=== PATIENT | male | born 1940 | race Caucasian/White ===

== ENCOUNTER 2017-08-26 18:01 | Inpatient (IN) | payer MEDICARE, BC ==
[~2017-08-26] VITALS: Ht 182.9 cm; Wt 97.1 kg
[2017-08-26 18:12] VITALS: BP 127/73
[2017-08-26 18:45] LABS: LYMPH % 8.2 % (10-50)
--- NOTE | 2017-08-26 18:46 | Emergency Room Report ---
History of Present Illness Time Seen by MD Patel Presenting Problem in Triage Pt arrived:Walked Presenting Problem:PT REPORTS WAS IN THE HOSPITAL IN [place] R/T AFIB. PT REPORTS WAS DISCHARGED AND TOLD WASN'T GOING TO "SHOCK HIM" FOR HIS AFIB WERE GOING TO TRY MEDICATIONS. PT STATES HAS BEEN FEELING WEAK AND IS DIZZY UPON STANDING. PT STATES HE HAS NOT FELT ANY BETTER SINCE HE WAS DISCHARGED FROM THE HOSPITAL IN [place]. 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 N Clinical Suspician of Infection? N Mental Status: 1 - Regular (Normal Baseline) Sepsis Risk:Low Sepsis Risk Have you (or family members/close friends) recently traveled outside the [facility]? N If Yes, where/when: Have you had exposure to infectious disease within the past month? N TB? Other? Specify: Comment History obtained from the patient and review of records from prior hospital admission in [facility]. 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 Recently about 10 days ago when in [facility] on the boat he became sick. He had weakness, high fever, shortness of breath, sore throat. He went to the hospital there and was admitted. He is diagnosed with atrial fibrillation. He has a history of paroxysmal atrial fibrillation prior to that, requiring several cardioversions. They did not cardiovert him in the hospital. He was treated with Levaquin and Tamiflu, although he says his flu test was negative and he was not told that he had pneumonia. He was treated empirically based upon his story. He says that he drove himself home on Tuesday 5 days ago and felt okay on that day, but on Tuesday his symptoms relapsed. He has not been out of bed since. He no longer has a severe sore throat, but has continued hoarseness. He feels weak, dizzy, and short of breath. He feels like when he stands up his blood pressure is low and he gets very dizzy. He has not been eating well. He has not had a bowel movement in 3 days. He has also been on prednisone. He called his primary care physician, Dr. Polk, on arrival home as instructed, but is not able to get in for 2-1/2 weeks. ALLERGIES Coded Allergies: No Known Allergies (08/26/17) Home Medications Reported Medications TAMSULOSIN HCL (Flomax 0.4MG) 0.4 MG PO QHS VIT B COMP/C/FA/IRON/VIT E (Vitamin B Complex Tablet) 1 TAB PO DAILY Prednisone (Prednisone 20MG) 20 MG PO BID Bupropion Hcl (Bupropion XL) 150 MG PO DAILY Digoxin (Digitek) 125 MCG PO DAILY Gabapentin (Gabapentin 100MG) 100 MG PO BID Gabapentin (Gabapentin 300MG) 300 MG PO QHS Levofloxacin (Levofloxacin 750MG) 750 MG PO DAILY History Medical History General CAD? No Angina: No [place]: No Hypertension? No Hyperlipidemia? No CHF? No DVT? No PE? No COPD? No Asthma? No Anemia? No GERD? No Gastric ulcers? No GI Bleed? No Hernia? No Thyroid Problems? No Hypothyroidism? No CVA? No Seizures? No Diabetes? No Renal Insuffiency? No End Stage Renal Disease? No UTI? No Stones? No GB Disease: No Nephritic Syndrome? No Asplenia? No Hepatitis? No Sickle Cell Disease? No Arthritis? No Migraines? No Cataracts? No Glaucoma? No MRSA? No HIV? No TB? No Anxiety? Yes Depression? Yes Cancer? Yes Site: SKIN (REMOVED) More? Yes Additional hx: AFIB Immunization Hx DT/Tetanus 02/21/09 Flu 2YRSorMore Pneumonia 1-4 YRS Surgical Hx Previous Surgery?Y CARTILAGE RT KNEE HEART CATHS-LAST 2001 SKIN CA REMOVED Family History Family Hx Diabetes No CAD No Hypertension No Hyperlipidemia No Cancer No TB No Social History Smoking Hx Smoker: Former Smoker Tobacco: No Packs/day N/A Alcohol Alcohol: No Review of Systems All Other Systems Reviewed and Negative Constitutional malaise, weakness ENT see HPI. Respiratory shortness of breath Cardiovascular denies chest pain Gastrointestinal constipation, denies vomiting Physical Exam Vital Signs Vital Signs Date Time Temp Pulse Resp B/P Pulse O2 O2 Flow FiO2 Ox Delivery Rate 08/26 1910 97 18 116/76 96 08/26 1824 119 90/60 10/13 1822 110 81/64 08/26 1820 97 108/71 08/26 1812 98.0 97 18 127/73 96 General Appearance no apparent distress Eye Exam - bilateral eye normal exam, bilateral eye PERRL, bilateral eye EOMI Ear, Nose, Throat hearing grossly normal, normal ENT inspection Neck normal inspection, non-tender, supple, full range of motion Respiratory Status Yes: trachea midline, chest symmetrical, non tender chest. No: respiratory distress. Lung Sounds bilateral: normal breath sounds, lungs clear. 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 No Results/Orders Laboratory Tests 08/26/171831: Sodium 138, Potassium 4.4, Chloride 103, Carbon Dioxide 32, BUN 31 H, Creatinine 1.5 H, Estimated Creat Clear 55, Estimated GFR (MDRD) 45, Glucose 106, Calcium 8.9, Total Bilirubin 0.7, AST 16, ALT 29, Alkaline Phosphatase 92, Creatine Kinase 24 L, CK-MB (CK-2) Rel Index 2.9, CK and CKMB Interp 0.7, Troponin I < 0.02, Total Protein 7.1, Albumin 3.3 L, Globulin 3.8 H, Albumin/ Globulin Ratio 0.9 L, WBC 12.5 H, RBC 5.63, Hgb 17.9, Hct 54.6 H, MCV 97.0, RDW 14.4, Plt Count 185, MPV 9.3, Gran % 83.6 H, Gran # 10.4 H, Lymphocytes % 8.2 L, Monocytes % 7.8, Eosinophils % 0.3, Basophils % 0.2, Lymphocytes # 1.0, Monocytes # 1.0, Eosinophils # 0.0, Basophils # 0.0, PUBS MCHC 32.5, MCH 31.5 H , Digoxin 0.76 L Current Medication Orders Sig/Nathan Start time Last Medication Dose Route Stop Time Status Admin Sodium Chloride 10 ML PRN PRN 08/26 1845 AC IV 08/27 183 Sodium Chloride 1,000 ML .Q4H 08/26 1845 AC 08/26 IV 08/26 Sodium Chloride 10 ML PRN PRN 08/26 1845 AC IV 08/27 184 Sodium Chloride 1,000 ML .STK-MED ONE 08/26 184 DC IV Orders Procedure Date/time Status Decision to admit 08/26 1942 Active DIGOXIN 08/26 1921 Complete ELECTROCARDIOGRAM REQUEST 08/26 1833 Active CHEST-PORTABLE 08/26 1833 Active IV SALINE LOCK 08/26 1833 Active 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 08/26 1833 Active ORTHOSTATIC B/P 08/26 1833 Active CBC WITH AUTO DIFF 08/26 1833 Complete CARDIAC ENZYMES 08/26 1833 Complete CHEM 12 PROFILE 08/26 1833 Complete CM/EKG CM/EKG Comments EKG interpreted by Pierre Casillas MD: Rhythm: Atrial fibrillation with rapid ventricular response Rate: 110 [place]: LEFT Ectopy: none Conduction: normal ST Segment Changes: Nonspecific T Wave Changes: Nonspecific Q Waves: none No evidence of acute ischemia or injury Left ventricular hypertrophy Poor R-wave progression No prior EKGs available for comparison XRAY/CT/US XRAY/CT/US XRAY chest Comment X-ray interpreted by Pierre Casillas M.D.: minimal airspace disease and bases, atelectasis versus infiltrate. Progress - 7:39 PM: I have discussed the case with Dr. Luna for Dr. Polk who agrees to admit the patient to the hospital. We discussed the patient's clinical information, including history, exam, laboratory and radiology results and ED course. Per hospital procedure, I will write temporary bridge inpatient orders on the patient. Specific orders requested by the admitting physician: IV hydration, change from Levaquin to Rocephin due to potential interaction with amiodarone. Departure Departure Disposition Still a Patient Clinical Impression Primary Impression: Orthostatic hypotension Condition STABLE ED Critical Care Critical Care No at 2018
--- NOTE | 2017-08-26 18:46 | Emergency Room Report ---
History of Present Illness Time Seen by MD Patel Presenting Problem in Triage Pt arrived:Walked Presenting Problem:PT REPORTS WAS IN THE HOSPITAL IN [place] R/T AFIB. PT REPORTS WAS DISCHARGED AND TOLD WASN'T GOING TO "SHOCK HIM" FOR HIS AFIB WERE GOING TO TRY MEDICATIONS. PT STATES HAS BEEN FEELING WEAK AND IS DIZZY UPON STANDING. PT STATES HE HAS NOT FELT ANY BETTER SINCE HE WAS DISCHARGED FROM THE HOSPITAL IN [place]. 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 N Clinical Suspician of Infection? N Mental Status: 1 - Regular (Normal Baseline) Sepsis Risk:Low Sepsis Risk Have you (or family members/close friends) recently traveled outside the [facility]? N If Yes, where/when: Have you had exposure to infectious disease within the past month? N TB? Other? Specify: Comment History obtained from the patient and review of records from prior hospital admission in [facility]. 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 Recently about 10 days ago when in [facility] on the boat he became sick. He had weakness, high fever, shortness of breath, sore throat. He went to the hospital there and was admitted. He is diagnosed with atrial fibrillation. He has a history of paroxysmal atrial fibrillation prior to that, requiring several cardioversions. They did not cardiovert him in the hospital. He was treated with Levaquin and Tamiflu, although he says his flu test was negative and he was not told that he had pneumonia. He was treated empirically based upon his story. He says that he drove himself home on Tuesday 5 days ago and felt okay on that day, but on Tuesday his symptoms relapsed. He has not been out of bed since. He no longer has a severe sore throat, but has continued hoarseness. He feels weak, dizzy, and short of breath. He feels like when he stands up his blood pressure is low and he gets very dizzy. He has not been eating well. He has not had a bowel movement in 3 days. He has also been on prednisone. He called his primary care physician, Dr. Polk, on arrival home as instructed, but is not able to get in for 2-1/2 weeks. ALLERGIES Coded Allergies: No Known Allergies (08/26/17) Home Medications Reported Medications TAMSULOSIN HCL (Flomax 0.4MG) 0.4 MG PO QHS VIT B COMP/C/FA/IRON/VIT E (Vitamin B Complex Tablet) 1 TAB PO DAILY Prednisone (Prednisone 20MG) 20 MG PO BID Bupropion Hcl (Bupropion XL) 150 MG PO DAILY Digoxin (Digitek) 125 MCG PO DAILY Gabapentin (Gabapentin 100MG) 100 MG PO BID Gabapentin (Gabapentin 300MG) 300 MG PO QHS Levofloxacin (Levofloxacin 750MG) 750 MG PO DAILY History Medical History General CAD? No Angina: No [place]: No Hypertension? No Hyperlipidemia? No CHF? No DVT? No PE? No COPD? No Asthma? No Anemia? No GERD? No Gastric ulcers? No GI Bleed? No Hernia? No Thyroid Problems? No Hypothyroidism? No CVA? No Seizures? No Diabetes? No Renal Insuffiency? No End Stage Renal Disease? No UTI? No Stones? No GB Disease: No Nephritic Syndrome? No Asplenia? No Hepatitis? No Sickle Cell Disease? No Arthritis? No Migraines? No Cataracts? No Glaucoma? No MRSA? No HIV? No TB? No Anxiety? Yes Depression? Yes Cancer? Yes Site: SKIN (REMOVED) More? Yes Additional hx: AFIB Immunization Hx DT/Tetanus 02/21/09 Flu 2YRSorMore Pneumonia 1-4 YRS Surgical Hx Previous Surgery?Y CARTILAGE RT KNEE HEART CATHS-LAST 2001 SKIN CA REMOVED Family History Family Hx Diabetes No CAD No Hypertension No Hyperlipidemia No Cancer No TB No Social History Smoking Hx Smoker: Former Smoker Tobacco: No Packs/day N/A Alcohol Alcohol: No Review of Systems All Other Systems Reviewed and Negative Constitutional malaise, weakness ENT see HPI. Respiratory shortness of breath Cardiovascular denies chest pain Gastrointestinal constipation, denies vomiting Physical Exam Vital Signs Vital Signs Date Time Temp Pulse Resp B/P Pulse O2 O2 Flow FiO2 Ox Delivery Rate 08/26 1910 97 18 116/76 96 08/26 1824 119 90/60 10/13 1822 110 81/64 08/26 1820 97 108/71 08/26 1812 98.0 97 18 127/73 96 General Appearance no apparent distress Eye Exam - bilateral eye normal exam, bilateral eye PERRL, bilateral eye EOMI Ear, Nose, Throat hearing grossly normal, normal ENT inspection Neck normal inspection, non-tender, supple, full range of motion Respiratory Status Yes: trachea midline, chest symmetrical, non tender chest. No: respiratory distress. Lung Sounds bilateral: normal breath sounds, lungs clear. 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 No Results/Orders Laboratory Tests 08/26/171831: Sodium 138, Potassium 4.4, Chloride 103, Carbon Dioxide 32, BUN 31 H, Creatinine 1.5 H, Estimated Creat Clear 55, Estimated GFR (MDRD) 45, Glucose 106, Calcium 8.9, Total Bilirubin 0.7, AST 16, ALT 29, Alkaline Phosphatase 92, Creatine Kinase 24 L, CK-MB (CK-2) Rel Index 2.9, CK and CKMB Interp 0.7, Troponin I < 0.02, Total Protein 7.1, Albumin 3.3 L, Globulin 3.8 H, Albumin/ Globulin Ratio 0.9 L, WBC 12.5 H, RBC 5.63, Hgb 17.9, Hct 54.6 H, MCV 97.0, RDW 14.4, Plt Count 185, MPV 9.3, Gran % 83.6 H, Gran # 10.4 H, Lymphocytes % 8.2 L, Monocytes % 7.8, Eosinophils % 0.3, Basophils % 0.2, Lymphocytes # 1.0, Monocytes # 1.0, Eosinophils # 0.0, Basophils # 0.0, PUBS MCHC 32.5, MCH 31.5 H , Digoxin 0.76 L Current Medication Orders Sig/Nathan Start time Last Medication Dose Route Stop Time Status Admin Sodium Chloride 10 ML PRN PRN 08/26 1845 AC IV 08/27 183 Sodium Chloride 1,000 ML .Q4H 08/26 1845 AC 08/26 IV 08/26 Sodium Chloride 10 ML PRN PRN 08/26 1845 AC IV 08/27 184 Sodium Chloride 1,000 ML .STK-MED ONE 08/26 184 DC IV Orders Procedure Date/time Status Decision to admit 08/26 1942 Active DIGOXIN 08/26 1921 Complete ELECTROCARDIOGRAM REQUEST 08/26 1833 Active CHEST-PORTABLE 08/26 1833 Active IV SALINE LOCK 08/26 1833 Active 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 08/26 1833 Active ORTHOSTATIC B/P 08/26 1833 Active CBC WITH AUTO DIFF 08/26 1833 Complete CARDIAC ENZYMES 08/26 1833 Complete CHEM 12 PROFILE 08/26 1833 Complete CM/EKG CM/EKG Comments EKG interpreted by Pierre Casillas MD: Rhythm: Atrial fibrillation with rapid ventricular response Rate: 110 [place]: LEFT Ectopy: none Conduction: normal ST Segment Changes: Nonspecific T Wave Changes: Nonspecific Q Waves: none No evidence of acute ischemia or injury Left ventricular hypertrophy Poor R-wave progression No prior EKGs available for comparison XRAY/CT/US XRAY/CT/US XRAY chest Comment X-ray interpreted by Pierre Casillas M.D.: minimal airspace disease and bases, atelectasis versus infiltrate. Progress - 7:39 PM: I have discussed the case with Dr. Luna for Dr. Polk who agrees to admit the patient to the hospital. We discussed the patient's clinical information, including history, exam, laboratory and radiology results and ED course. Per hospital procedure, I will write temporary bridge inpatient orders on the patient. Specific orders requested by the admitting physician: IV hydration, change from Levaquin to Rocephin due to potential interaction with amiodarone. Departure Departure Disposition Still a Patient Clinical Impression Primary Impression: Orthostatic hypotension Condition STABLE ED Critical Care Critical Care No at 2018
[2017-08-26 18:53] LABS: HEMOGLOBIN 17.9 g/dL (14.1-18.0)
[2017-08-26 19:02] LABS: BUN 31 mg/dL (7-18); GFR (ESTIMATED) 45 ML/MIN (>60)
[2017-08-26] MEDS ORDERED: FLOMAX 0.4MG C0.4 MG PO (20:14)
[2017-08-26] MEDS ORDERED: VITAMIN B COMPL PO (20:15)
[2017-08-26] MEDS ORDERED: BUDEPRION XL150 MG PO (20:16)
[2017-08-26] MEDS ORDERED: PREDNISONE 20MG20 MG PO (20:16)
[2017-08-26] MEDS ORDERED: GABAPENTIN100 M1 PO (20:17)
[2017-08-26] MEDS ORDERED: DIGITEK125 MCG PO (20:17)
[2017-08-26] MEDS ORDERED: GABAPENTIN300 MG PO (20:18)
[2017-08-26] MEDS ORDERED: AMIODARONE 200200 MG PO (20:18)
[2017-08-26] MEDS ORDERED: LEVOFLOXACIN 7750 M1 PO (20:18)
[2017-08-26] MEDS ORDERED: ELIQUIS5 MG PO (20:19)
[2017-08-26] MEDS ORDERED: CARDIZEM GENERI30 MG PO (20:20)
[2017-08-26] MEDS ORDERED: ALPRAZOLAM0.5 MG PO (20:21)
[2017-08-26] MEDS ORDERED: LASIX20 MG PO (20:21)
[2017-08-26] MEDS ORDERED: POTASSIUM CHLO10 ME3 PO (20:22)
[2017-08-26] MEDS ORDERED: ALBUTEROL-1 PUFF/14. IN (20:22)
[2017-08-26 21:34] VITALS: BP 127/69
[2017-08-26 21:40] VITALS: BP 119/74
[2017-08-27] VITALS (12 sets, daily range): BP systolic 89–140; BP diastolic 52–107
--- NOTE | 2017-08-27 07:20 | RADIOLOGY REPORT PS360 ---
CHEST-PORTABLE HISTORY: WEAKNESS, DIZZINESS ORDERING PHYSICIAN: Pierre Casillas MD PATIENT AGE: 77 years COMPARISON: 05/23/2017 FINDINGS: The cardiomediastinal silhouette and pulmonary vascularity are within normal limits. There is chronic coarsening of the bronchovascular markings consistent with chronic peribronchial inflammatory change. Increased markings are present in the right lung base consistent with atelectasis or infiltrate. Patchy density also present in the left lung base laterally. Probable nipple artifact left lower lobe. IMPRESSION: Chronic peribronchial inflammatory changes with atelectasis or infiltrate in the lung bases
--- NOTE | 2017-08-27 10:39 | HISTORY AND PHYSICAL REPORT ---
History and Physical ([facility]) Date of admission: 08/26/17 Chief complaint: Weakness, malaise, congestion History: History of Present Illness: This 77-year-old white male has paroxysmal atrial fibrillation. His admission however, relates to her respiratory illness which he contracted [place] was [place]. 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 He became ill and was hospitalized in [facility]. There was some question of influenza but he never tested positive. He was treated with Levaquin at some point during his illness. This is of concern because the patient normally takes amiodarone (potential interaction) for his paroxysmal atrial fibrillation. He was hospitalized , Tuesday, Tuesday, Tuesday and was discharged last Tuesday. (Today is Tuesday). He drove home from his trip in a rented car but has not felt well since his hospitalization. He presented in the emergency room for evaluation. He is continued with congestion. He has had no gastrointestinal disturbance. He was told that there was an outbreak of influenza on the river boat. Past Medical History: Medical History: CAD? No Angina: No [place]: No Hypertension? Yes Hyperlipidemia? No CHF? No DVT? No PE? No COPD? No Asthma? No Anemia? No GERD? No Gastric ulcers? No GI Bleed? No Hernia? No Thyroid Problems? No Hypothyroidism? No CVA? No Seizures? No Diabetes? No Renal Insuffiency? No UTI? No Stones? No BPH? Yes GB Disease: No Nephritic Syndrome? No Asplenia? No Hepatitis? No Sickle Cell Disease? No Arthritis? No Migraines? No Cataracts? No Glaucoma? No MRSA? No HIV? No TB? No Anxiety? Yes Depression? Yes (venlafaxine and bupropion) Cancer? Yes Site: SKIN (REMOVED) More? Yes Additional hx: Mitral valve prolapse AFIB (Rx Amiodarone) Surgical history: Previous Surgery?Y 1. CARTILAGE RT KNEE with arthroscopy 2. HEART CATHS-LAST 2001 3. SKIN CA REMOVED Medications: Reported Medications TAMSULOSIN HCL (Flomax 0.4MG) 0.4 MG PO QHS VIT B COMP/C/FA/IRON/VIT E (Vitamin B Complex Tablet) 1 TAB PO DAILY Prednisone (Prednisone 20MG) 20 MG PO BID Bupropion Hcl (Bupropion XL) 150 MG PO DAILY Digoxin (Digitek) 125 MCG PO DAILY Gabapentin (Gabapentin 100MG) 100 MG PO DAILY Gabapentin (Gabapentin 300MG) 300 MG PO QHS Levofloxacin (Levofloxacin 750MG) 750 MG PO DAILY Amiodarone Hcl (Amiodarone 200MG) 200 MG PO DAILY Apixaban (Eliquis) 5 MG PO BID Diltiazem Hcl (Cardizem Generic 30MG Tab) 30 MG PO TID ALPRAZOLAM (Alprazolam 0.5MG) 0.5 MG PO QHS POTASSIUM CHL (Potassium Chloride) 10 MEQ PO DAILY ALBUTEROL-IPRATROPIUM (Combivent Inhaler) 1 PUFFS IN QID Allergies: Coded Allergies: No Known Allergies (08/26/17) Family History: Family history: Postive for: CAD, cancer. Additional family history: 2 brothers and a sister have atrial fibrillation and have been treated. His mother of complications. She had a history of asthma. The patient has 5 brothers and 2 sisters one daughter and 3 sons. Social History: Smoking Hx Tobacco: No Smoker: Former Smoker Type: Cigarettes Packs/day: < 1 Pack Are you exposed to second hand No Alcohol: Alcohol: Yes How much do you drink 1-2 Drinks Per Day For how long Longer Than 5 Years When was your last drink Greater Than 72 Hours Ago Hx of Drug Use: Drug Use? 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 No Constitutional Positive for: fatigue, malaise, weak. No: chills, recent weight loss. ENT No: ear ache, nose bleed, ear drainage, hearing loss, mouth pain, nasal congestion, ear ringing, sinus problems, sore throat, throat swelling, tongue pain, tongue swelling, toothache, voice change. Cardiovascular Positive for: PEREZ, palpitations. Respiratory Positive for: dyspnea on exertion, shortness of air, productive cough (sputum). GI No: GERD, abdominal pain, anorexia, constipation, diarrhea, dysphagia, hematemeis, hematochezia, hernia, melena, nausea, rectal pain, vomitting. (male) Positive for: urgency. No: flank pain. Skin No: abrasions, bruising, contusions, diaphoresis, ecchymosis, itching, laceration, rash, swelling. Neurological Positive for: weakness. No: change in LOC, bladder dysfunction, bowel dysfunction, confusion, dizziness, gait problem, headache, light headed, numbness, seizure, slurred speech, unable to speak, spinning sensation, syncope, vision change. Immune/allergy No: allergy. Eyes No: blurry vision, diploplia, discharge, itching, vision loss, eye pain, photophobia, redness, swelling. Musculoskeletal No: arterial, extremity pain, extremity swelling, joint pain, joint swelling, lumbar pain, myalgias, neck pain, thoracic pain. Heme No: adenopathy, bleeding, bruising, petechia. Psychiatric Positive for: depression, stress. No: agitation, anxious, auditory hallucinations, confused, delusional, homicidal ideation, hostile, insomnia, change in mental status, suicidal ideation, visual hallucination. Additional information: depression related to loss of his second . He also lost a son 9 y,o. Physical Exam: Vital signs: 1ST Vital Signs Result Date Time Pulse Ox 96 08/26 1812 B/P 127/73 08/26 1812 Temp 98.0 08/26 1812 Pulse 97 08/26 181 Resp 18 08/26 1812 O2 Delivery ROOM AIR 08/26 2134 O2 Flow Rate 2 08/26 2338 Exam: General appearance: alert, no acute distress Eyes: anicteric, conjunctiva clear, pupils reactive to light ENT: mucous membranes moist Neck: normal inspection, no JVD Cardiovascular: irregularly irregular Respiratory: good air movement, basilar rales (some) ABD: soft, no tenderness, no guarding, no organomegaly Genitourinary: normal voiding & quantity (some dysuria) Extremities: normal capillary refill, no peripheral edema Musculoskeletal: equal muscle strength Skin: dry, intact, normal color Neuro: alert, oriented, speech clear Lab data: Labs: Laboratory Tests 08/26/17 1832: Sodium 138, Potassium 4.4, Chloride 103, Carbon Dioxide 32, BUN 31 H, Creatinine 1.5 H, Estimated Creat Clear 55, Estimated GFR (MDRD) 45, Glucose 106, Calcium 8.9, Total Bilirubin 0.7, AST 16, ALT 29, Alkaline Phosphatase 92, Creatine Kinase 24 L, CK-MB (CK-2) Rel Index 2.9, CK and CKMB Interp 0.7, Troponin I < 0.02, Total Protein 7.1, Albumin 3.3 L, Globulin 3.8 H, Albumin/ Globulin Ratio 0.9 L, WBC 12.5 H, RBC 5.63, Hgb 17.9, Hct 54.6 H, MCV 97.0, RDW 14.4, Plt Count 185, MPV 9.3, Gran % 83.6 H, Gran # 10.4 H, Lymphocytes % 8.2 L, Monocytes % 7.8, Eosinophils % 0.3, Basophils % 0.2, Lymphocytes # 1.0, Monocytes # 1.0, Eosinophils # 0.0, Basophils # 0.0, PUBS MCHC 32.5, MCH 31.5 H , Digoxin 0.76 L Diagnosis(es): 1. Orthostatic hypotension 2. Dehydration 3. Acute respiratory infection 4. Chronic atrial fibrillation 5. Depression 6. Reactive depression Plan: At this point the patient may benefit most from rehydration and from [place] dilators per nebulizer. He seems to be responding well to treatment. Her Dodge will see the patient in my absence. at [id number]
--- NOTE | 2017-08-27 13:25 | PHARMACY CLINIC NOTE ---
Patient Demographics Patient Demographics Admission date: 08/26/17 Date: 08/27/17 Time: 1324 Allergies Coded Allergies: No Known Allergies (08/26/17) HEIGHT- FT: 6 IN: 0.00 K.098 VTE General Information Labs: Laboratory Tests 08/26 1832 Hematology Hgb (14.1 - 18.0 g/dL) 17.9 Hct (42.0 - 52.0 %) 54.6 H Plt Count (142 - 424 K/mm3) 185 Disclaimer The following section includes nursing documentation that has been pulled in for pharmacy review. Patient's VTE score: 4 Patient's VTE Risk: LOW RISK Clinical trial participant? No VTE prophylaxis NQF [id number] VTE prophylaxis ordered? Yes Type of prophylaxis/treatment: Heparin (ELIQUIS BID) at 1323
[2017-08-27] MEDS ORDERED: VENLAFAXINE HYD75 M1 PO (14:55)
--- OUTSIDE RECORDS SUMMARY | 2017-08-27 21:58 | External Medical Summary Rpt | CCD ---
Author Author , GISSELL BORRERO Address Unknown Phone [email or web address] Purpose Continuity of Care Document - through 2016
--- OUTSIDE RECORDS SUMMARY | 2017-08-27 21:58 | External Medical Summary Rpt | CCD ---
Author Author , GISSELL BORRERO Address Unknown Phone [email or web address] Purpose Continuity of Care Document - through 2016
--- OUTSIDE RECORDS SUMMARY | 2017-08-27 21:59 | External Medical Summary Rpt ---
Author Author GISSELL Epstein, [employer] Organization [employer] Address Unknown Phone Unavailable
--- OUTSIDE RECORDS SUMMARY | 2017-08-27 21:59 | External Medical Summary Rpt | CCD ---
Demographics Preferred Language Haitian Marital Status Unknown Tenriism Affiliation Unknown Race Unknown Ethnic Group Unknown Author Author , GISSELL BORRERO Address Unknown Phone Immunization No patient found.
--- OUTSIDE RECORDS SUMMARY | 2017-08-27 21:59 | External Medical Summary Rpt | CCD ---
Demographics Preferred Language Guatemalan Marital Status Unknown Islam Affiliation Unknown Race Unknown Ethnic Group Unknown Author Author , GISSELL BORRERO Address Unknown Phone Immunization No patient found.
--- OUTSIDE RECORDS SUMMARY | 2017-08-27 21:59 | External Medical Summary Rpt | CCD ---
Author Author [employer] Organization [employer] Address Unknown Phone Unavailable Purpose Continuity of Care Document - through 2016
--- OUTSIDE RECORDS SUMMARY | 2017-08-27 22:05 | External Medical Summary Rpt ---
Author Author GISSELL Epstein, [employer]LL [employer] Organization [employer] Address Unknown Phone Unavailable Results Digoxin [Mass/volume] in Serum or Plasma Observa Value Referen Units Interpr Notes Date tion ce etation Range Digoxin 1.15 - ng/mL Low No Aug 26 [Mass/vol 2.56 informati 2017 6:32 ume] in on in PM Serum or source Plasma data CBC W Auto Differential panel in Blood Observa Value Referen Units Interpr Notes Date tion ce etation Range Basophils 0 - 0.2 K/MM3 Normal No Aug 26 informati 2016 6:32 [#/volume on in PM ] in source Blood by data Automated count Basophils 0.1 - 2.0 % Normal No Aug 26 informati 2016 6:32 leukocyte on in PM s in source Blood by data Automated count Eosinophi 0.0 - 0.4 K/mm3 Normal No Aug 26 ls informati 2016 6:32 [#/volume on in PM ] in source Blood by data Automated count Eosinophi 0.1 - % Normal No Aug 26 ls/100 12.0 informati 2016 6:32 leukocyte on in PM s in source Blood by data Automated count Granulocy 1.3 - 8.0 K/mm3 High No Aug 26 yashira informati 2016 6:32 [#/volume on in PM ] in source Blood by data Automated count Granulocy 37.0 - % High No Aug 26 yashira/100 80.0 informati 2016 6:32 leukocyte on in PM s in source Blood by data Automated count Hematocri 42.0 - % High No Aug 26 t [Volume 52.0 informati 2016 6:32 on in PM Fraction] source of Blood data Hemoglobi 14.1 - g/dL No No Aug 26 n 18.0 informati informati 2016 6:32 [Mass/vol on in on in PM ume] in source source Blood data data Lymphocyt 0.7 - 4.5 K/mm3 Normal No Aug 26 es informati 2016 6:32 [#/volume on in PM ] in source Unspecifi data ed specimen by Automated count Lymphocyt 10 - 50 % Low No Aug 26 es informati 2016 6:32 [#/volume on in PM ] in source Unspecifi data ed specimen by Automated count Erythrocy 27 - 31.2 pg High No Aug 26 te mean informati 2016 6:32 corpuscul on in PM ar source hemoglobi data n [Entitic mass] Erythrocy 31.8 - g/dl Normal No Aug 26 te mean 35.4 informati 2017 6:32 corpuscul on in PM ar source hemoglobi data n concentra tion [Mass/vol ume] by Automated count Erythrocy 82.2 - fl Normal No Aug 26 te mean 97.8 informati 2016 6:32 corpuscul on in PM ar volume source [Entitic data volume] by Automated count Monocytes 0.1 - 1.0 K/mm3 Normal No Aug 26 informati 2017 6:32 [#/volume on in PM ] in source Blood by data Automated count Monocytes 1.7 - 9.3 % Normal No Aug 26 /100 informati 2017 6:32 leukocyte on in PM s in source Blood by data Automated count Platelet 7.4 - fl Normal No Aug 26 mean 10.4 informati 2017 6:32 volume on in PM [Entitic source volume] data in Blood by Automated count Platelets 142 - 424 K/mm3 Normal No Aug 26 informati 2017 6:32 [#/volume on in PM ] in source Blood data Erythrocy 4.6 - 6.2 M/mm3 Normal No Aug 26 yashira informati 2017 6:32 [#/volume on in PM ] in source Amniotic data fluid Erythrocy 11.5 - % Normal No Aug 26 te 17.5 informati 2016 6:32 distribut on in PM ion width source [Entitic data volume] by Automated count Leukocyte 4.8 - K/MM3 High No Aug 26 s 10.8 informati 2016 6:32 [#/volume on in PM ] in source Blood data
--- OUTSIDE RECORDS SUMMARY | 2017-08-27 22:05 | External Medical Summary Rpt | CCD ---
Demographics Preferred Language American Marital Status Unknown Restorationism Affiliation Unknown Race Unknown Ethnic Group Unknown Author Author , GISSELL BORRERO Address Unknown Phone Immunization No patient found.
--- OUTSIDE RECORDS SUMMARY | 2017-08-27 22:05 | External Medical Summary Rpt ---
Author Author GISSELL Epstein, G[employer]LL [employer] Organization [employer] Address Unknown Phone Unavailable [...]
--- OUTSIDE RECORDS SUMMARY | 2017-08-27 22:05 | External Medical Summary Rpt | CCD ---
Author Author , GISSELL BORRERO Address Unknown Phone [email or web address] Purpose Continuity of Care Document - 08-26-2017 through 2016
--- OUTSIDE RECORDS SUMMARY | 2017-08-27 22:05 | External Medical Summary Rpt | CCD ---
Demographics Preferred Language Bulgarian Marital Status Unknown Taoist Affiliation Unknown Race Unknown Ethnic Group Unknown Author Author , GISSELL BORRERO Address Unknown Phone Immunization No patient found.
--- OUTSIDE RECORDS SUMMARY | 2017-08-27 22:05 | External Medical Summary Rpt | CCD ---
Author Author , GISSELL BORRERO Address Unknown Phone [email or web address] Purpose Continuity of Care Document - 08-26-2017 through 2016
[2017-08-28] VITALS (11 sets, daily range): BP systolic 101–163; BP diastolic 61–80
--- NOTE | 2017-08-28 10:59 | ACUTE CARE PROGRESS NOTE (QUA) ---
Progress Notes Subjective Date 08/28/17 Time 1056 Note Patient states he feels better today, wants to see a director dietetics department about his a. fib. Objective Findings Vital Signs Date Time Temp Pulse Resp B/P Pulse O2 O2 Flow FiO2 Ox Delivery Rate 08/28 0905 98.1 98 20 107/78 91 08/28 0830 98.1 98 20 107/78 91 ROOM AIR 08/28 0642 2 08/28 0642 90 ROOM AIR 08/28 0426 98.0 65 18 106/76 93 ROOM AIR 08/28 0425 98.0 61 18 112/61 93 ROOM AIR 08/28 0424 98.0 98 18 133/80 92 ROOM AIR 08/28 0002 98.4 89 16 101/74 93 ROOM AIR 08/27 2115 98.5 93 18 101/67 94 08/27 2059 98.3 89 16 101/67 90 ROOM AIR 08/27 2058 98.3 64 16 95/62 90 ROOM AIR 08/27 2057 98.3 64 16 106/68 90 ROOM AIR 08/27 2056 2 08/27 1600 89/56 08/27 1600 96/63 08/27 1600 98.5 93 18 110/70 94 ROOM AIR 08/27 1200 97.8 78 18 140/73 93 ROOM AIR I&O Past 24 Hrs-ending at 0700 08/28 0700 Intake Total 2668 Output Total 2800 Balance -132 Last VS-Temp:98.1 B/P:107/78 Pulse:98 Resp:20 SaO2:91 ROOM AIR Last weight lbs:214 oz:1 K.098 Method:Bed Scales Exam General appearance: alert, awake, no acute distress Cardiovascular: irregular rate & rhythm Respiratory: clear to auscultation Assessment/Plan Problem List 1. Orthostatic hypotension Status: Acute 2. Dehydration Status: Acute 3. Acute respiratory infection Status: Acute 4. Chronic atrial fibrillation Status: Chronic 5. Depression This inpt stay is expected to cross 2 MNs from start of care Yes Comments: Patient has improved, continue current treatment, will request cardiology consultation. at 1058
[2017-08-29] VITALS (7 sets, daily range): BP systolic 116–150; BP diastolic 56–95
[2017-08-29 06:46] LABS: HEMOGLOBIN 16.3 g/dL (14.1-18.0); LYMPH # 0.6 K/mm3 (0.7-4.5); LYMPH % 4.3 % (10-50)
[2017-08-29 08:58] LABS: NEUTROPHILS 87 % (42-76)
--- NOTE | 2017-08-29 09:03 | ACUTE CARE PROGRESS NOTE (QUA) ---
Progress Notes Subjective Date 08/29/17 Time 0901 Note Patient feels a little better today. Objective Findings Laboratory Tests 08/29/17 0609: Sodium 141, Potassium 5.1, Chloride 108 H, Carbon Dioxide 29, BUN 24 H, Creatinine 1.1, Estimated Creat Clear 75, Estimated GFR (MDRD) 65, Glucose 119 H, Calcium 8.7, WBC 12.6 H, RBC 5.14, Hgb 16.3, Hct 51.4, MCV 100.1 H, RDW 14.8, Plt Count 185, MPV 9.5, Gran % 90.5 H, Gran # 11.5 H, Total Counted 100, Lymphocytes % 4.3 L, Monocytes % 4.6, Eosinophils % 0.4, Basophils % 0.1, Neutrophils 87 H, Band Neutrophils 1, Lymphocytes (Manual) 4 L, Lymphocytes # 0.6 L, Monocytes (Manual) 8, Monocytes # 0.6, Eosinophils # 0.1, Basophils # 0.0, Platelet Estimate NORMAL, Macrocytosis 1+, PUBS MCHC 31.6 L, MCH 31.7 H Vital Signs Date Time Temp Pulse Resp B/P Pulse O2 O2 Flow FiO2 Ox Delivery Rate 08/29 0823 97.4 53 21 143/79 92 08/29 0800 97.6 107 20 141/95 93 ROOM AIR 08/29 0619 2 08/29 0619 92 ROOM AIR 08/29 0349 97.4 53 21 143/79 93 ROOM AIR 08/28 2357 97.9 79 22 163/71 91 ROOM AIR 08/28 2056 2 08/28 1942 97.6 89 20 111/63 93 08/28 1915 97.6 89 20 11163 93 ROOM AIR 08/28 1627 97.7 98 20 126/74 95 ROOM AIR 08/28 1316 98 ROOM AIR 08/28 1200 98.2 96 20 120/76 96 ROOM AIR 08/28 0905 98.1 98 20 107/78 91 I&O Past 24 Hrs-ending at 0700 08/29 0700 Intake Total 1427 Output Total 1200 Balance 227 Last VS-Temp:97.4 B/P:143/79 Pulse:53 Resp:21 SaO2:92 ROOM AIR Last weight lbs:214 oz:1 K.098 Method:Bed Scales Exam General appearance: alert, awake, no acute distress Cardiovascular: irregularly irregular Respiratory: clear to auscultation ABD: normal bowel sounds, soft, no tenderness Assessment/Plan Problem List 1. Orthostatic hypotension Status: Acute 2. Dehydration Status: Acute 3. Acute respiratory infection Status: Acute 4. Chronic atrial fibrillation Status: Chronic 5. Depression This inpt stay is expected to cross 2 MNs from start of care Yes Comments: Patient improving, cardiology to see patient today. at 0902
--- NOTE | 2017-08-29 11:07 | CONSULT NOTE ---
Standard Demographics Patient Demo Date of Consultation: 08/29/17 Referring Provider: Korey Luna MD Reason for Consultation: A.fib PRIMARY DIAGNOSIS: ORTHOSTATIC HYPOTENSION Problem list Problem list: 1. Chronic paroxysmal atrial fibrillation, first diagnosed about 1999 A. Cardioversion 3 (1999, approximately 2004 and again in 2013) B. Chronic amiodarone and Eliquis therapy. 2. Family history of atrial fibrillation, father with complication of congestive heart failure 3. History of cardiac catheterization approximately 1999, no significant disease noted. 4. Cardiomyopathy by echo, 08/2017, [place] [facility], with EF 30% and dilated ventricles. History of present illness: History of present illness: 77-year-old white male with recent complaint of fatigue and weakness and shortness of breath was admitted to the hospital orthostatic hypotension, dehydration and possible pneumonia. Patient recently hospitalized for several days at [place], [place], for similar symptoms. Patient was released last Tuesday and rented a car to come back to this area (his home). Patient continued to experience some decline in energy and fatigue and decided to come to the hospital for further evaluation. Due to low blood pressure and abnormal chest x-ray patient admitted for further evaluation and treatment. He was noted to be in chronic atrial fibrillation and wished to have cardiology see him for evaluation and recommendations. He states he didn't like to be cardioverted back to sinus rhythm which helps him clinically improve quicker. Initial troponin is normal. Electrocardiogram shows atrial fibrillation with rate of 110 bpm, poor R-wave progression anteriorly and nonspecific ST-T wave changes likely secondary to dig effect. At this time patient is slowly improving without complaint of chest discomfort or palpitations. He states each time he has been in atrial fibrillation he is unaware of it except for the resultant fatigue and weakness. He does relate recently having more alcohol than he normally does as well as a monster energy drink when he was driving home from [place]. Past Medical History: General: Hypertension Yes CVA No Seizures No TB No COPD No Asthma No Diabetes No Angina No ID No Hyperlipidemia No Urinary Yes Cancer Yes Rheumatic H.D. No Ulcers No MRSA No GB Disease No Other ARRHYTHMIA, MITRAL VALVE Additional hx Mitral valve prolapse AFIB (Rx Amiodarone) Past Surgical HX: Previous Surgery?Y CARTILAGE RT KNEE HEART CATHS-LAST 2001 SKIN CA REMOVED Allergies Coded Allergies: No Known Allergies (08/26/17) Home medications: Reported Medications TAMSULOSIN HCL (Flomax 0.4MG) 0.4 MG PO QHS VIT B COMP/C/FA/IRON/VIT E (Vitamin B Complex Tablet) 1 TAB PO DAILY Prednisone (Prednisone 20MG) 20 MG PO BID Bupropion Hcl (Bupropion XL) 150 MG PO DAILY Digoxin (Digitek) 125 MCG PO DAILY Gabapentin (Gabapentin 100MG) 100 MG PO DAILY Gabapentin (Gabapentin 300MG) 300 MG PO QHS Levofloxacin (Levofloxacin 750MG) 750 MG PO DAILY Amiodarone Hcl (Amiodarone 200MG) 200 MG PO DAILY Apixaban (Eliquis) 5 MG PO BID Diltiazem Hcl (Cardizem Generic 30MG Tab) 30 MG PO TID ALPRAZOLAM (Alprazolam 0.5MG) 0.5 MG PO QHS POTASSIUM CHL (Potassium Chloride) 10 MEQ PO DAILY ALBUTEROL-IPRATROPIUM (Combivent Inhaler) 1 PUFFS IN QID VENLAFAXINE HCL (Venlafaxine HCl ER) 75 MG PO DAILY #90 CAP Current Medications: Current Medications Alprazolam 0 .STK-MED ONE .ROUTE (DC) Patient Own Medication 1 UNIT BID PO Ceftriaxone Sodium 1 GM Q24H IV Sodium Chloride 50 ML Amiodarone HCl 200 MG DAILY PO Bupropion HCl 150 MG DAILY PO Furosemide 20 MG DAILY PO Albuterol/Ipratropium 3 ML QIDRT INH Alprazolam 0.5 MG QHS PO Gabapentin 100 MG TID PO Prednisone 20 MG BID PO Tamsulosin HCl 0.4 MG QHS PO Venlafaxine HCl 75 MG BID PO Digoxin 0.125 MG DAILY PO Influenza Virus Vaccine Quadrival 0.5 ML PRN PRN IM Nicotine 21 MG DAILYP PRN TD Sodium Chloride 1,000 ML .[id number] IV Sodium Chloride 10 ML PRN PRN IV Immunization HX DT/Tetanus 5-10 Years Flu 2YRSorMore Pneumonia 1-4 YRS TB Test in last year No Family history Family HX Family Hx Insignificant No Diabetes No CAD No Hypertension No Hyperlipidemia No Cancer No TB No Social Hx: Smoking HX Tobacco No Type Cigarettes Packs/day < 1 PACK Are you/the child exposed to second-hand smoke: No Alcohol Alcohol: Yes How much do you drink 1-2 Drinks Per Day For how long Longer Than 5 Years When was your last drink Greater Than 72 Hours Ago Hx of Drug Use Drug Use? No Patien't marital status is Patient's support system is fair Review of systems: Constitutional weakness. Respiratory SOB with excertion. Cardiovascular No no symptoms reported Gastrointestinal/Abdominal No no symptoms reported Genitourinary No: no symptoms reported. Musculoskeletal No: no symptoms reported. Neurological No: no symptoms reported. Exam: Admission Vital Signs: 1ST Vital Signs Result Date Time Pulse Ox 96 08/26 1812 B/P 127/73 08/26 1812 Temp 98.0 08/26 1812 Pulse 97 08/26 1812 Resp 18 08/26 1812 O2 Delivery ROOM AIR 08/26 2134 O2 Flow Rate 2 08/26 2338 Last Vital Signs: Vital Signs Result Date Time Pulse Ox 92 08/29 823 B/P 143/79 08/29 823 Temp 97.4 08/29 823 Pulse 53 08/29 823 Resp 21 08/29 823 O2 Delivery ROOM AIR 08/29 0800 O2 Flow Rate 2 08/29 0619 Exam General appearance: alert, awake, no acute distress Neck: no carotid bruit, no JVD Cardiovascular: irregularly irregular Respiratory: decreased breath sounds without wheezing. No appreciable crackles. Extremities: moves all, no peripheral edema Neuro: alert, intact, oriented Laboratory data: Laboratory Tests 08/29/17 0609: Sodium 141, Potassium 5.1, Chloride 108 H, Carbon Dioxide 29, BUN 24 H, Creatinine 1.1, Estimated Creat Clear 75, Estimated GFR (MDRD) 65, Glucose 119 H, Calcium 8.7, WBC 12.6 H, RBC 5.14, Hgb 16.3, Hct 51.4, MCV 100.1 H, RDW 14.8, Plt Count 185, MPV 9.5, Gran % 90.5 H, Gran # 11.5 H, Total Counted 100, Lymphocytes % 4.3 L, Monocytes % 4.6, Eosinophils % 0.4, Basophils % 0.1, Neutrophils 87 H, Band Neutrophils 1, Lymphocytes (Manual) 4 L, Lymphocytes # 0.6 L, Monocytes (Manual) 8, Monocytes # 0.6, Eosinophils # 0.1, Basophils # 0.0, Platelet Estimate NORMAL, Macrocytosis 1+, PUBS MCHC 31.6 L, MCH 31.7 H 08/26/17 1832: Sodium 138, Potassium 4.4, Chloride 103, Carbon Dioxide 32, BUN 31 H, Creatinine 1.5 H, Estimated Creat Clear 55, Estimated GFR (MDRD) 45, Glucose 106, Calcium 8.9, Total Bilirubin 0.7, AST 16, ALT 29, Alkaline Phosphatase 92, Creatine Kinase 24 L, CK-MB (CK-2) Rel Index 2.9, CK and CKMB Interp 0.7, Troponin I < 0.02, Total Protein 7.1, Albumin 3.3 L, Globulin 3.8 H, Albumin/ Globulin Ratio 0.9 L, WBC 12.5 H, RBC 5.63, Hgb 17.9, Hct 54.6 H, MCV 97.0, RDW 14.4, Plt Count 185, MPV 9.3, Gran % 83.6 H, Gran # 10.4 H, Lymphocytes % 8.2 L, Monocytes % 7.8, Eosinophils % 0.3, Basophils % 0.2, Lymphocytes # 1.0, Monocytes # 1.0, Eosinophils # 0.0, Basophils # 0.0, PUBS MCHC 32.5, MCH 31.5 H , Digoxin 0.76 L Plan: Assessment: 1. Chronic atrial fibrillation, on digoxin, amiodarone, diltiazem and Eliquis. Patient reports having an echocardiogram recently in [place], [place]. We'll try to obtain that report to evaluate LEFT atrial size and LEFT ventricular ejection fraction prior to consideration of electrical cardioversion. We'll obtain thyroid function test. Currently patient's rate is controlled. 2. Respiratory illness possibly related to atrial fibrillation induced congestive heart failure with recent BNP at his hospitalization in [place], [place] greater than 6000. 3. Dilated Cardiomyopathy by echo earlier this month in [place] without further evaluation at that time. Recommendations: See above. Discussed with Dr. Bazzi and would recommend proceeding with cardiac catheterization via radial approach due to eliquis therapy. Will hold eliquis tonight and in AM. at 0758
[2017-08-29 11:34] LABS: FREE THYROXIN INDEX 9.6 ug/dl (5.93-13.13)
[2017-08-30] VITALS (16 sets, daily range): BP systolic 102–143; BP diastolic 50–80
--- NOTE | 2017-08-30 08:36 | ACUTE CARE PROGRESS NOTE (QUA) ---
Progress Notes Subjective Date 08/30/17 Time 0831 Note 77 yo WM in bed in NAD. No complaints overnight. Objective Findings Last VS-Temp:97.4 B/P:113/64 Pulse:105 Resp:16 SaO2:94 ROOM AIR Last weight lbs:214 oz:1 K.098 Method:Bed Scales Exam General appearance: alert, awake, no acute distress Cardiovascular: regular rate & rhythm Respiratory: clear to auscultation Reviewed: medications, vital signs, lab results Assessment/Plan Problem List 1. Orthostatic hypotension Status: Acute 2. Dehydration Status: Acute 3. Acute respiratory infection Status: Acute 4. Chronic atrial fibrillation Status: Chronic 5. Depression 6. Dilated cardiomyopathy Patient condition Stable Plan: Going for cardiac cath today. If EF <35% then consider LifeVest prior to discharge. Tolerating start of coreg, YSABEL, digoxin and spironolactone in addition to low dose lasix. This inpt stay is expected to cross 2 MNs from start of care Yes at 0836
--- NOTE | 2017-08-30 08:55 | ACUTE CARE PROGRESS NOTE (QUA) ---
Progress Notes Subjective Date 08/30/17 Time 0854 Assessment/Plan Problem List 1. Orthostatic hypotension Status: Acute 2. Dehydration Status: Acute 3. Acute respiratory infection Status: Acute 4. Chronic atrial fibrillation Status: Chronic 5. Depression 6. Dilated cardiomyopathy This inpt stay is expected to cross 2 MNs from start of care Yes Antibiotic Stewardship (2) Infxn that will respond? Yes Right drug,dose,and route? Yes More targeted antbx? No at 0855
--- NOTE | 2017-08-30 09:26 | ACUTE CARE PROGRESS NOTE (QUA) ---
Progress Notes Subjective Date 08/30/17 Time 0715 Note Doing well ; anxious for cardiac cath to be over; denies CP and SOB; took a shower last night and tolerated well; eating without problems-loves the food. Voiding QS and bowels have moved Objective Findings Laboratory Tests 08/30/17 0810: Sodium 141, Potassium 4.6, Chloride 109 H, Carbon Dioxide 25, BUN 24 H, Creatinine 1.1, Estimated Creat Clear 75, Estimated GFR (MDRD) 65, Glucose 114 H, Calcium 8.3 L Vital Signs Date Time Temp Pulse Resp B/P Pulse O2 O2 Flow FiO2 Ox Delivery Rate 08/30 0756 97.4 105 16 113/64 94 ROOM AIR 08/30 0612 91 ROOM AIR 08/30 0403 97.6 89 18 130/80 94 ROOM AIR 08/30 0049 2 08/30 0049 94 ROOM AIR 08/30 0017 98.0 108 18 141/80 94 ROOM AIR 08/29 2145 98.5 63 18 150/89 94 08/29 2011 98.5 63 18 150/89 94 ROOM AIR 08/29 2010 2 08/29 2010 94 ROOM AIR 08/29 1600 98.1 58 20 117/56 92 ROOM AIR 08/29 1200 97.6 76 18 116/70 92 ROOM AIR Current Medications Fentanyl Citrate 25 MCG PRN PRN IV Fentanyl Citrate 50 MCG PRN PRN IV Flumazenil 0.2 MG PRN PRN IV Heparin Sodium (Beef Lung) 5,000 UNITS PRN PRN IV Heparin Sodium/Sodium Chloride 3,000 UNITS PRN PRN IV Midazolam HCl 1 MG PRN PRN IV Midazolam HCl 1 MG PRN PRN IV Naloxone HCl 0.4 MG [id number] PRN IV Nitroglycerin 800 MCG PRN PRN IV Verapamil HCl 5 MG PRN PRN IV Carvedilol 0 .STK-MED ONE .ROUTE (DC) Diphenhydramine HCl 50 MG ONCE ONE IV (DC) Lidocaine HCl 20 ML ONCE ONE IJ (DC) Diphenhydramine HCl 0 .STK-MED ONE .ROUTE (DC) Sodium Chloride 1,000 ML .STK-MED ONE IV (DC) Alprazolam 0 .STK-MED ONE .ROUTE (DC) Carvedilol 3.125 MG BID PO Lisinopril 0 .STK-MED ONE .ROUTE (DC) Spironolactone 25 MG DAILY PO Lisinopril 2.5 MG DAILY PO Patient Own Medication 1 UNIT BID PO (DA) Ceftriaxone Sodium 1 GM Q24H IV Sodium Chloride 50 ML Amiodarone HCl 200 MG DAILY PO Bupropion HCl 150 MG DAILY PO Furosemide 20 MG DAILY PO Albuterol/Ipratropium 3 ML QIDRT INH Alprazolam 0.5 MG QHS PO Gabapentin 100 MG TID PO Prednisone 20 MG BID PO Tamsulosin HCl 0.4 MG QHS PO Venlafaxine HCl 75 MG BID PO Digoxin 0.125 MG DAILY PO Influenza Virus Vaccine Quadrival 0.5 ML PRN PRN IM Nicotine 21 MG DAILYP PRN TD Sodium Chloride 1,000 ML .[id number] IV Sodium Chloride 10 ML PRN PRN IV 08/29 1500 08/29 2300 08/30 0700 Intake Total 240 1367 683 Output Total 1100 2575 Balance -860 1367 -1892 Intake, IV 887 683 Intake, Oral 240 480 Output, Urine 1100 2575 Last VS-Temp:97.4 B/P:113/64 Pulse:105 Resp:16 SaO2:94 ROOM AIR Last weight lbs:214 oz:1 K.098 Method:Bed Scales Exam General appearance: alert, active, no acute distress Cardiovascular: irregularly irregular Respiratory: clear to auscultation (bilat anterior and posterior) ABD: non-distended, soft, no tenderness, bowel sounds present Extremities: no peripheral edema Neuro: alert, oriented, speech clear Assessment/Plan Problem List 1. Orthostatic hypotension Status: Acute 2. Dehydration Status: Acute 3. Acute respiratory infection Status: Acute 4. Chronic atrial fibrillation Status: Chronic 5. Depression 6. Dilated cardiomyopathy Patient condition Improved Plan: for cardiac cath this AM This inpt stay is expected to cross 2 MNs from start of care Yes (Kim Estrada APRN) Assessment/Plan Problem List 1. Orthostatic hypotension Status: Acute 2. Dehydration Status: Acute 3. Acute respiratory infection Status: Acute 4. Chronic atrial fibrillation Status: Chronic 5. Depression 6. Dilated cardiomyopathy Comments: Patient seen and agree with above note. (Korey Luna MD) at 0926 at 1230
--- NOTE | 2017-08-30 10:43 | RADIOLOGY REPORT PS360 ---
CARDIAC CATHETERIZATION DATE OF CATHETERIZATION:08/30/2017 9:33 AM PROCEDURES: 1. Left heart catheterization 2. Left ventriculogram 3. Selective coronary angiogram INDICATION FOR TEST: 1. Cardiomyopathy ejection fraction 20-30% 2. Evaluation for ischemic heart disease Informed consent was obtained prior to the procedure. COMPLICATIONS: None ESTIMATED BLOOD LOSS: Less than 10 ml. TECHNIQUE: One percent lidocaine used to anesthetize the right anterior aspect of the wrist. The right radial artery was accessed via the Seldinger technique. A 6 Frisian sheath was placed in the right radial artery. 2.5 mg of verapamil, 800 mcg of nitroglycerin and 5000 U Heparin were given through the arterial sheath. The Lauren catheter was also used to perform left heart catheterization and left ventriculography. At the end of the procedure the patient was transferred to the post-op holding area in stable condition for arterial sheath removal. ANGIOGRAPHIC RESULTS: 1. The left main artery normal 2. The left anterior descending artery normal 3. The circumflex artery normal dominant 4. The right coronary artery normal 5. The QUEVEDO ventriculogram reveals moderate to severely dilated with an ejection fraction of 30% 6. The left ventricular end-diastolic pressure 20 millimeters mercury IMPRESSION: 1. Normal coronary arteries. 2. Left ventricular dilatation with reduced ejection fraction 3. Dilated cardiomyopathy 4. Mildly elevated LVED PLAN: 1. Standard therapy for systolic heart failure 2. Patient should be evaluated for either a lifevest or an AICD depending upon the duration of his systolic heart failure medication regimen 3. Patient might benefit from slightly more diuresis
[2017-08-31 00:23] VITALS: BP 118/69
[2017-08-31 04:30] VITALS: BP 124/71
[2017-08-31 07:27] VITALS: BP 121/87
--- NOTE | 2017-08-31 08:21 | ACUTE CARE PROGRESS NOTE (QUA) ---
Progress Notes Subjective Date 08/31/17 Time 0817 Note Pt is feeling much better today. He states he has no pain. He "slept like a rock." He ate all of his breakfast. He is anxious to go home but is supposed to be fitted for a life vest today. Objective Findings Last VS-Temp:97.1 B/P:121/87 Pulse:102 Resp:18 SaO2:94 ROOM AIR Last weight lbs:214 oz:1 K.098 Method:Bed Scales Exam General appearance: alert, awake, no acute distress Cardiovascular: regular rate & rhythm Respiratory: clear to auscultation ABD: non-distended, normal bowel sounds, no rebound, soft, no tenderness, no guarding Extremities: no peripheral edema Assessment/Plan Problem List 1. Dilated cardiomyopathy Status: Acute 2. Orthostatic hypotension Status: Acute 3. Dehydration Status: Acute 4. Acute respiratory infection Status: Acute 5. Chronic atrial fibrillation Status: Chronic 6. Depression Plan: Cardiology to follow today. Patient is supposed to be fitted with a life vest. Possible discharge home if cleared by cardiology. This inpt stay is expected to cross 2 MNs from start of care No (Lisa Chaudhary) Assessment/Plan Problem List 1. Dilated cardiomyopathy Status: Acute 2. Orthostatic hypotension Status: Acute 3. Dehydration Status: Acute 4. Acute respiratory infection Status: Acute 5. Chronic atrial fibrillation Status: Chronic 6. Depression Comments: Patient seen and agree with above note. (Korey Luna MD) at 0820 at 0819
[2017-08-31 08:31] VITALS: BP 121/87
--- NOTE | 2017-08-31 10:42 | ACUTE CARE PROGRESS NOTE (QUA) ---
Progress Notes Subjective Date 08/31/17 Time 1033 Note 77 yo WM in room in NAD. Wearing LifeVest. Multiple questions answered. He is feeling much better than he was on admission. Objective Findings Last VS-Temp:97.1 B/P:121/87 Pulse:102 Resp:18 SaO2:94 ROOM AIR Last weight lbs:214 oz:1 K.098 Method:Bed Scales Exam General appearance: alert, awake, no acute distress Cardiovascular: irregularly irregular Respiratory: clear to auscultation Extremities: moves all, no peripheral edema Neuro: alert, intact, oriented Reviewed: medications, vital signs, lab results Assessment/Plan Problem List 1. Dilated cardiomyopathy Status: Acute Assessment/Plan: Normal coronaries. Dilated cardiomyopathy likely related to alcohol use and medication non- compliance (pt relates previously on meds for the same problem with improvement) . Continue LifeVest for 90 days before deciding on need for AICD unless he has SCD and receives therapy from the LifeVest. 2. Orthostatic hypotension Status: Acute 3. Dehydration Status: Acute 4. Acute respiratory infection Status: Acute 5. Chronic atrial fibrillation Status: Chronic Assessment/Plan: Resume eliquis. Continue amiodarone with consideration for cardioversion in near future if needed. 6. Depression Patient condition Stable Plan: OK for discharge home from cardiology standpoint. Fluid restriction of 2 Liters per day. Weigh daily. BP/Pulse check daily at home Follow up in one week. Continue current meds including coreg, lasix, lisinopril, spironolactone amiodarone, eliquis and digoxin. This inpt stay is expected to cross 2 MNs from start of care No at 1046
[2017-08-31 11:21] VITALS: BP 91/70
[2017-08-31] MEDS ORDERED: VENLAFAXINE HYD75 M1 PO (12:08)
[2017-08-31] MEDS ORDERED: COREG 3.125M3.125 MG PO (12:09)
[2017-08-31] MEDS ORDERED: SPIRONOLACTONE25 M1 PO (12:10)
[2017-08-31] MEDS ORDERED: LISINOPRIL2.5 M1 PO (12:10)
[2017-08-31] MEDS ORDERED: LASIX20 MG PO (12:11)
[2017-08-31] MEDS ORDERED: ELIQUIS5 MG PO (12:17)
[2017-08-31] MEDS ORDERED: FLOMAX 0.4MG C0.4 MG PO (12:19)
[2017-08-31 15:08] VITALS: BP 105/70
--- NOTE | 2017-09-01 17:00 | DISCHARGE SUMMARY STANDARD ---
Discharge Summary (FCA2) Date of admission: 08/27/17 Date of discharge: 08/31/17 Problem List: 1. Dilated cardiomyopathy 2. Orthostatic hypotension 3. Dehydration 4. Acute respiratory infection 5. Chronic atrial fibrillation 6. Depression History of present illness: Mr. Smith is a 77-year-old white male with paroxysmal atrial fibrillation. His admission however, relates to his respiratory illness which he contracted while he was on a river boat. 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 He became ill and was hospitalized in [facility]. There was some question of influenza but he never tested positive. He was treated with Levaquin at some point during his illness. This is of concern because the patient normally takes amiodarone (potential interaction) for his paroxysmal atrial fibrillation. He was hospitalized , Tuesday, Tuesday, Tuesday and was discharged last Tuesday. (Today is Tuesday). He drove home from his trip in a rented car but had not felt well since his hospitalization. He presented in the emergency room for evaluation. He had continued with congestion. He had had no gastrointestinal disturbance. He was told that there was an outbreak of influenza on the river boat. Exam on admission: General appearance: alert, no acute distress Eyes: anicteric, conjunctiva clear, pupils reactive to light ENT: mucous membranes moist Neck: normal inspection, no JVD Cardiovascular: irregularly irregular Respiratory: good air movement, basilar rales (some) ABD: soft, no tenderness, no guarding, no organomegaly Genitourinary: normal voiding & quantity (some dysuria) Extremities: normal capillary refill, no peripheral edema Musculoskeletal: equal muscle strength Skin: dry, intact, normal color Neuro: alert, oriented, speech clear Hospital Course: The patient's respiratory status improved. He was started on nebs and was hydrated d/t the fact he appeared dehydrated and had orthostatic hypotension. He requested a cardiology consult d/t his afib. He had apparently had an elevated BNP while in [place] and cardiology felt he had had CHF secondary to his respiratory illness. He also had dilated cardiomyopathy on a previous echo. They recommended a heart cath which showed normal coronaries but dilated cardiomyopathy with an EF of 30%. The patient was started on coreg, and ACEI, digoxin, spironolactone, and lasix. He improved and his HR was controlled. He was fitted for a lifevest d/t his low EF and was stable to be discharged. He will f/u with Dr. Polk and Cardiology. Discharge medications: Stop taking the following medications: Prednisone (Prednisone 20MG) 20 MG TABLET ORAL TWICE A DAY Levofloxacin (Levofloxacin 750MG) 750 MG TABLET ORAL DAILY Diltiazem Hcl (Cardizem Generic 30MG Tab) 30 MG TABLET ORAL THREE TIMES A DAY Continue taking these medications: VIT B COMP/C/FA/IRON/VIT E (Vitamin B Complex Tablet) 1 EACH TABLET 1 TABLET ORAL DAILY Bupropion Hcl (Bupropion XL) 150 MG TAB.ER.24H 150 MILLIGRAM ORAL DAILY Digoxin (Digitek) 125 MCG TABLET 125 MICROGRAM ORAL DAILY Gabapentin (Gabapentin 100MG) 100 MG CAPSULE 100 MILLIGRAM ORAL DAILY Gabapentin (Gabapentin 300MG) 300 MG CAPSULE 300 MILLIGRAM ORAL AT BEDTIME NIGHTLY Amiodarone Hcl (Amiodarone 200MG) 200 MG TABLET 200 MILLIGRAM ORAL DAILY ALPRAZOLAM (Alprazolam 0.5MG) 0.5 MG TABLET 0.5 MILLIGRAM ORAL AT BEDTIME NIGHTLY POTASSIUM CHL (Potassium Chloride) 10 MEQ TABLET.ER 10 Milliequivalent ORAL DAILY ALBUTEROL-IPRATROPIUM (Combivent Inhaler) 14.7 GM AER.W.ADAP 1 PUFFS IN VITRO FOUR TIMES A DAY VENLAFAXINE HCL (Venlafaxine HCl ER) 75 MG CAP.ER.24H 75 MILLIGRAM ORAL DAILY Qty = 90 This prescription has been renewed Apixaban (Eliquis) 5 MG TABLET 5 MILLIGRAM ORAL TWICE A DAY Qty = 60 This prescription has been renewed TAMSULOSIN HCL (Flomax 0.4MG) 0.4 MG CAP.ER.24H 0.4 MILLIGRAM ORAL AT BEDTIME NIGHTLY Qty = 30 This prescription has been renewed Start taking the following new medications: Carvedilol (Coreg 3.125MG) 3.125 MG TABLET 3.125 MILLIGRAM ORAL TWICE A DAY Qty = 60 Refills = 5 Lisinopril (Lisinopril) 2.5 MG TABLET 2.5 MILLIGRAM ORAL DAILY Qty = 30 Refills = 5 Spironolactone (Spironolactone) 25 MG TABLET 25 MILLIGRAM ORAL DAILY Qty = 30 Refills = 5 Furosemide (Lasix) 20 MG TABLET 20 MILLIGRAM ORAL DAILY Qty = 30 Refills = 5 Disposition: F/U with: Andres Bazzi MD Follow up: 7 DAYS Activity: Cont Current activity Diet: Congestive Heart Failure Discharge to: HOME Agency needed? N (Lisa Chaudhary) Problem List: 1. Dilated cardiomyopathy 2. Orthostatic hypotension 3. Dehydration 4. Acute respiratory infection 5. Chronic atrial fibrillation 6. Depression 7. CHF (congestive heart failure) (Jeremy SANDOVAL,Korey) at 1700
== END 2017-08-31 15:00 | disposition home or self-care (01) | DRG 287 ==
LOC: ER 18:01 → 2ND 19:51 → ER 19:51 → 2ND 21:22
PROVIDERS: Emergency Medicine; Family Medicine; Internal Medicine
PROC: B2151ZZ Fluoroscopy of Left Heart using Low Osmolar Contrast (ICD-10-PCS; principal; 2017-08-30 09:45)
PROC: B2111ZZ Fluoroscopy of Multiple Coronary Arteries using Low Osmolar Contrast (ICD-10-PCS; principal; 2017-08-30 09:45)
PROC: 4A023N7 Measurement of Cardiac Sampling and Pressure, Left Heart, Percutaneous Approach (ICD-10-PCS; principal; 2017-08-30 09:45)
DX: I42.0 Dilated cardiomyopathy (principal); I27.20 Pulmonary hypertension, unspecified; I48.0 Paroxysmal atrial fibrillation; I50.20 Unspecified systolic (congestive) heart failure; Z72.89 Other problems related to lifestyle
CPT/HCPCS: C1725; C1769; G0378; J1644; Q9967

== ENCOUNTER 2017-09-06 08:47 | Observation (INO) | payer MEDICARE, BC ==
[~2017-09-06] VITALS: Ht 182.9 cm; Wt 91.3 kg
[2017-09-06] VITALS (16 sets, daily range): BP systolic 97–130; BP diastolic 54–73
[~2017-09-06 08:47] MED LIST: ALBUTEROL-1 PUFF/14. IN; ALPRAZOLAM0.5 MG PO; AMIODARONE 200200 MG PO; BUDEPRION XL150 MG PO; CARDIZEM GENERI30 MG PO; COREG 3.125M3.125 MG PO; DIGITEK125 MCG PO; ELIQUIS5 MG PO; FLOMAX 0.4MG C0.4 MG PO; GABAPENTIN100 M1 PO; GABAPENTIN300 MG PO; LASIX20 MG PO; LEVOFLOXACIN 7750 M1 PO; LISINOPRIL2.5 M1 PO; POTASSIUM CHLO10 ME3 PO; PREDNISONE 20MG20 MG PO; SPIRONOLACTONE25 M1 PO; VENLAFAXINE HYD75 M1 PO; VITAMIN B COMPL PO
--- OUTSIDE RECORDS SUMMARY | 2017-09-06 10:19 | External Medical Summary Rpt | CCD ---
Author Author , GISSELL Organization GISSELL Address Unknown Phone [email or web address] Purpose Continuity of Care Document - 08-26-2017 through 2016 Problems Code Diagnosis DOS Provider Status I95.1 ORTHOSTATIC HYPOTENSION Results Labs Lab Lab Date Result Refere Interp Status Commen Order Detail nces retati t Range on Basic metabolic panel (08-30-2017 08:10) Serum = 141 136-145 complet sodium 017 mmoL/L ed measure 08:10 ment Serum = 4.6 3.5-5.1 complet potassi 017 mmoL/L ed um 08:10 measure ment Serum = 114 74-106 complet or 017 mg/dL ed plasma 08:10 glucose measure ment (mas Estimat = 65 >60 complet ed 017 ML/MIN ed glomeru 08:10 lar filtrat ion rate (GF Comment: REFERENCE RANGE: >60 ML/MIN/1.73 SQUARE METERS Comment: If this patient is -Burmese, then multiply the Comment: result by 1.210. Estimat = 75 50-200 complet ion of 017 ML/MIN ed creatin 08:10 ine renal clearan ce Serum = 1.1 0.70-1. complet or 017 mg/dL 30 ed plasma 08:10 creatin ine measure ment ( Carbon = 25 21.0-32 complet dioxide 017 mmoL/L .0 ed 08:10 measure ment Serum = 109 98-107 complet or 017 mmoL/L ed plasma 08:10 chlorid e measure ment (mo Serum = 8.3 8.5-10. complet or 017 mg/dL 1 ed plasma 08:10 calcium measure ment (mas Serum = 24 7-18 complet or 017 mg/dL ed plasma 08:10 urea nitroge n measure men Brain natriuretic peptide (08-29-2017 06:09) Brain = 164 0-100 complet natriur 017 pg/mL ed etic 06:09 peptide THYROID PANEL 2 (08-29-2017 06:09) Serum 08-29- = 9.6 5.93-13 complet or 017 ug/dl .13 ed plasma 06:09 thyroxi ne (T4) free inde Serum = 0.28 0.358-3 complet or 017 uIU/ml .740 ed plasma 06:09 thyroid stimula ting horm Thyroxi = 9.2 4.7-13. complet ne 017 ug/dl 3 ed 06:09 T3 = 42 % 31-39 complet uptake 017 ed 06:09 Differential panel, method unspecified - (08-29-2017 06:09) Blood = 100 complet total 017 #CELLS ed cell 06:09 count Neutrop = 87 % 42-76 complet hil 017 ed count 06:09 Platele NORMAL complet t 017 NORMAL ed estimat 06:09 L e Monocyt = 8 % 2-9 complet e % 017 ed 06:09 Macrocy 1+ 1+ L complet yashira 017 ed detecti 06:09 on LYMPH 4 % 10-50 complet 017 ed 06:09 Automat = 1 % 0-8 complet ed 017 ed blood 06:09 band neutrop hil percent a CBC w auto diff (08-29-2017 06:09) Blood = 12.6 4.8-10. complet leukocy 017 K/MM3 8 ed yashira 06:09 count (number /volume ) Automat = 14.8 11.5-17 complet ed 017 % .5 ed erythro 06:09 cyte distrib ution width Red = 5.14 4.6-6.2 complet blood 017 M/mm3 ed cell 06:09 count Blood = 185 142-424 complet platele 017 K/mm3 ed t count 06:09 Automat = 9.5 7.4-10. complet ed 017 fl 4 ed blood 06:09 platele t mean volume dustin Roberts % = 4.6 % 1.7-9.3 complet 017 ed 06:09 Absolut = 0.6 0.1-1.0 complet e 017 K/mm3 ed monocyt 06:09 e count Automat = 100.1 82.2-97 complet ed 017 fl .8 ed erythro 06:09 cyte mean corpusc ular v Automat = 31.6 31.8-35 complet ed 017 g/dl .4 ed erythro 06:09 cyte mean corpusc ular h Mean = 31.7 27-31.2 complet corpusc 017 pg ed ular 06:09 hemoglo bin (MCH) determ Lymphoc = 4.3 % 10-50 complet yte 017 ed count, 06:09 blood, automat ed Absolut = 0.6 0.7-4.5 complet e 017 K/mm3 ed lymphoc 06:09 yte count Blood = 16.3 14.1-18 complet hemoglo 017 g/dL .0 ed bin 06:09 measure ment (mass/v olum Blood = 51.4 42.0-52 complet hematoc 017 % .0 ed rit 06:09 (volume fractio n) Granulo = 90.5 37.0-80 complet cyte 017 % .0 ed percent 06:09 age Blood = 11.5 1.3-8.0 complet granulo 017 K/mm3 ed cytes 06:09 automat ed count (numb Automat = 0.4 % 0.1-12. complet ed 017 0 ed blood 06:09 eosinop hils/10 0 leukocy t Automat = 0.1 0.0-0.4 complet ed 017 K/mm3 ed blood 06:09 eosinop hil count Baso % = 0.1 % 0.1-2.0 complet 017 ed 06:09 Automat = 0.0 0-0.2 complet ed 017 K/MM3 ed blood 06:09 basophi l count (count/ vo Basic metabolic panel (08-29-2017 06:09) Serum = 141 136-145 complet sodium 017 mmoL/L ed measure 06:09 ment Serum = 5.1 3.5-5.1 complet potassi 017 mmoL/L ed um 06:09 measure ment Serum = 119 74-106 complet or 017 mg/dL ed plasma 06:09 glucose measure ment (mas Serum = 24 7-18 complet or 017 mg/dL ed plasma 06:09 urea nitroge n measure men Estimat = 65 >60 complet ed 017 ML/MIN ed glomeru 06:09 lar filtrat ion rate (GF Comment: REFERENCE RANGE: >60 ML/MIN/1.73 SQUARE METERS Comment: If this patient is -Burmese, then multiply the Comment: result by 1.210. Estimat = 75 50-200 complet ion of 017 ML/MIN ed creatin 06:09 ine renal clearan ce Serum = 1.1 0.70-1. complet or 017 mg/dL 30 ed plasma 06:09 creatin ine measure ment ( Carbon = 29 21.0-32 complet dioxide 017 mmoL/L .0 ed 06:09 measure ment Serum = 108 98-107 complet or 017 mmoL/L ed plasma 06:09 chlorid e measure ment (mo Serum = 8.7 8.5-10. complet or 017 mg/dL 1 ed plasma 06:09 calcium measure ment (mas Differential panel, method unspecified - (08-29-2017 06:09) LYMPH 4 % 10% - Low complet 017 50% ed 06:09 Macrocy 1+ complet yashira 017 ed [Presen 06:09 ce] in Blood Platele NORMAL complet ts 017 ed [Presen 06:09 ce] in Blood by Light microsc opy Digoxin level (08-26-2017 18:32) Digoxin = 0.76 1.15-2. complet level 017 ng/mL 56 ed 18:32 Comprehensive metabolic panel (08-26-2017 18:32) Protein = 7.1 6.4-8.2 complet total 017 gm/dL ed ser/romario 18:32 s ALT = 29 12-78 complet (SGPT) 017 U/L ed ser/romario 18:32 s Serum = 16 15-37 complet or 017 U/L ed plasma 18:32 asparta te aminotr ansfera Serum = 138 136-145 complet sodium 017 mmoL/L ed measure 18:32 ment Serum = 4.4 3.5-5.1 complet potassi 017 mmoL/L ed um 18:32 measure ment Serum = 106 74-106 complet or 017 mg/dL ed plasma 18:32 glucose measure ment (mas Serum = 3.8 1.3-3.2 complet globuli 017 gm/dL ed n 18:32 measure ment (mass/v olume) Estimat = 45 >60 complet ed 017 ML/MIN ed glomeru 18:32 lar filtrat ion rate (GF Comment: REFERENCE RANGE: >60 ML/MIN/1.73 SQUARE METERS Comment: If this patient is -Burmese, then multiply the Comment: result by 1.210. Estimat = 55 50-200 complet ion of 017 ML/MIN ed creatin 18:32 ine renal clearan ce Serum = 1.5 0.70-1. complet or 017 mg/dL 30 ed plasma 18:32 creatin ine measure ment ( Carbon = 32 21.0-32 complet dioxide 017 mmoL/L .0 ed 18:32 measure ment Serum = 103 98-107 complet or 017 mmoL/L ed plasma 18:32 chlorid e measure ment (mo Serum = 8.9 8.5-10. complet or 017 mg/dL 1 ed plasma 18:32 calcium measure ment (mas Serum = 31 7-18 complet or 017 mg/dL ed plasma 18:32 urea nitroge n measure men Serum = 0.7 0.2-1.0 complet or 017 mg/dL ed plasma 18:32 total bilirub in measure m Serum = 92 46-116 complet or 017 U/L ed plasma 18:32 alkalin e phospha tase dustin Serum = 3.3 3.4-5.0 complet or 017 gm/dL ed plasma 18:32 albumin measure ment (mas Serum = 0.9 1.1-1.8 complet or 017 ed plasma 18:32 albumin /globul in mass ra Cardiac enzymes (08-26-2017 18:32) Serum 10-2 < 0.02 0.00-0. complet or 017 ng/mL 06 ed plasma 18:32 troponi n i.cardi ac measu Serum = 24 39-308 complet or 017 U/L ed plasma 18:32 creatin e kinase measure m Serum = 0.7 0.0-3.6 complet or 017 ng/mL ed plasma 18:32 creatin e kinase MB measu Serum = 2.9 0-4.0 complet or 017 U/L ed plasma 18:32 creatin e kinase MB (CK-M CBC w auto diff (08-26-2017 18:32) Blood 08-26- = 12.5 4.8-10. complet leukocy 017 K/MM3 8 ed yashira 18:32 count (number /volume ) Automat = 14.4 11.5-17 complet ed 017 % .5 ed erythro 18:32 cyte distrib ution width Red = 5.63 4.6-6.2 complet blood 017 M/mm3 ed cell 18:32 count Blood = 185 142-424 complet platele 017 K/mm3 ed t count 18:32 Automat = 9.3 7.4-10. complet ed 017 fl 4 ed blood 18:32 platele t mean volume dustin Roberts % = 7.8 % 1.7-9.3 complet 017 ed 18:32 Absolut = 1.0 0.1-1.0 complet e 017 K/mm3 ed monocyt 18:32 e count Automat = 97.0 82.2-97 complet ed 017 fl .8 ed erythro 18:32 cyte mean corpusc ular v Automat = 32.5 31.8-35 complet ed 017 g/dl .4 ed erythro 18:32 cyte mean corpusc ular h Mean = 31.5 27-31.2 complet corpusc 017 pg ed ular 18:32 hemoglo bin (MCH) determ Lymphoc = 8.2 % 10-50 complet yte 017 ed count, 18:32 blood, automat ed Absolut = 1.0 0.7-4.5 complet e 017 K/mm3 ed lymphoc 18:32 yte count Blood = 17.9 14.1-18 complet hemoglo 017 g/dL .0 ed bin 18:32 measure ment (mass/v olum Blood = 54.6 42.0-52 complet hematoc 017 % .0 ed rit 18:32 (volume fractio n) Granulo = 83.6 37.0-80 complet cyte 017 % .0 ed percent 18:32 age Blood = 10.4 1.3-8.0 complet granulo 017 K/mm3 ed cytes 18:32 automat ed count (numb Automat = 0.3 % 0.1-12. complet ed 017 0 ed blood 18:32 eosinop hils/10 0 leukocy t Automat = 0.0 0.0-0.4 complet ed 017 K/mm3 ed blood 18:32 eosinop hil count Baso % = 0.2 % 0.1-2.0 complet 017 ed 18:32 Automat = 0.0 0-0.2 complet ed 017 K/MM3 ed blood 18:32 basophi l count (count/ vo
--- OUTSIDE RECORDS SUMMARY | 2017-09-06 10:19 | External Medical Summary Rpt | CCD ---
Author Author , GISSELL Organization GISSELL Address Unknown Phone [email or web address] Purpose Continuity of Care Document - 08-26-2017 [...] SQUARE METERS Comment: If this patient is -Portuguese, then multiply the Comment: result by 1.210. [...] blood 06:09 platele t mean volume dustin [place] % = 4.6 % 1.7-9.3 complet 017 [...] SQUARE METERS Comment: If this patient is -Portuguese, then multiply the Comment: result by 1.210. [...] SQUARE METERS Comment: If this patient is -Portuguese, then multiply the Comment: result by 1.210. [...] blood 18:32 platele t mean volume dustin [place] % = 7.8 % 1.7-9.3 complet 017 [...]
--- OUTSIDE RECORDS SUMMARY | 2017-09-06 10:20 | External Medical Summary Rpt | CCD ---
Demographics Preferred Language Beninese Marital Status Unknown Yarsanism Affiliation Unknown Race Unknown Ethnic Group Unknown Author Author , GISSELL Organization [employer] Address Unknown Phone Immunization Unable to retrieve immunization data due to connection failure with Immunization Registry. Please try again later.
--- OUTSIDE RECORDS SUMMARY | 2017-09-06 10:20 | External Medical Summary Rpt ---
Author Author [employer], [employer] Organization [employer] Address Unknown Phone Unavailable Results Basic metabolic panel in Blood Observa Value Referen Units Interpr Notes Date tion ce etation Range Urea 7 - 18 mg/dL High No Oct 17 nitrogen informati 2017 8:10 [Mass/vol on in AM ume] in source Serum or data Plasma Calcium 8.5 - mg/dL Low No Oct 17 [Mass/vol 10.1 informati 2017 8:10 ume] in on in AM Serum or source Plasma data Chloride 98 - 107 mmoL/L High No Aug 17 [Moles/vo informati 2016 8:10 lume] in on in AM Serum or source Plasma data Carbon 21.0 - mmoL/L Normal No Aug 17 dioxide, 32.0 informati 2016 8:10 total on in AM [Moles/vo source lume] in data Serum or Plasma Creatinin 0.70 - mg/dL Normal No Oct 17 e 1.30 informati 2016 8:10 [Mass/vol on in AM ume] in source Serum or data Plasma Creatinin 50 - 200 ML/MIN Normal No Oct 17 e renal informati 2017 8:10 clearance on in AM source predicted data by Cockcroft -Gault formula Estimated >60 ML/MIN No REFERENCE Oct 17 informati RANGE: 2017 8:10 glomerula on in >60 AM r source ML/MIN/1. filtratio data 73 SQUARE n rate METERSIf (GF this patient is -A merican, then multiply theresult by 1.210. Glucose 74 - 106 mg/dL High No Oct 17 [Mass/vol informati 2016 8:10 ume] in on in AM Serum or source Plasma data Potassium 3.5 - 5.1 mmoL/L Normal No Oct 17 informati 2017 8:10 [Moles/vo on in AM lume] in source Serum or data Plasma Sodium 136 - 145 mmoL/L Normal No Oct 17 [Moles/vo informati 2016 8:10 lume] in on in AM Serum or source Plasma data Natriutietic peptide B [Mass/volume] in Serum or Plasma Observa Value Referen Units Interpr Notes Date tion ce etation Range Natriutie 0 - 100 pg/mL High No Aug 16 tic informati 2016 6:09 peptide B on in AM source [Mass/vol data ume] in Serum or Plasma THYROID PANEL 2 Observa Value Referen Units Interpr Notes Date tion ce etation Range Thyroxine 5.93 - ug/dl Normal No Aug 16 (T4) 13.13 informati 2016 6:09 free on in AM index in source Serum or data Plasma Triiodoth 31 - 39 % High No Aug 16 yronine informati 2016 6:09 (T3) on in AM resin source uptake in data Serum or Plasma Thyroxine 4.7 - ug/dl Normal No Aug 16 (T4) 13.3 informati 2016 6:09 [Mass/vol on in AM ume] in source Serum or data Plasma Thyrotrop 0.358 - uIU/ml Low No Aug 16 in 3.740 informati 2016 6:09 [Units/vo on in AM lume] in source Serum or data Plasma CBC W Auto Differential panel in Blood Observa Value Referen Units Interpr Notes Date tion ce etation Range Basophils 0 - 0.2 K/MM3 Normal No Aug 16 informati 2016 6:09 [#/volume on in AM ] in source Blood by data Automated count Basophils 0.1 - 2.0 % Normal No Oct 16 /100 informati 2017 6:09 leukocyte on in AM s in source Blood by data Automated count Eosinophi 0.0 - 0.4 K/mm3 Normal No Aug 16 ls informati 2016 6:09 [#/volume on in AM ] in source Blood by data Automated count Eosinophi 0.1 - % Normal No Aug 16 ls/100 12.0 informati 2016 6:09 leukocyte on in AM s in source Blood by data Automated count Granulocy 1.3 - 8.0 K/mm3 High No Aug 16 yashira informati 2016 6:09 [#/volume on in AM ] in source Blood by data Automated count Granulocy 37.0 - % High No Aug 16 yashira/100 80.0 informati 2016 6:09 leukocyte on in AM s in source Blood by data Automated count Hematocri 42.0 - % Normal No Aug 16 t [Volume 52.0 informati 2017 6:09 on in AM Fraction] source of Blood data Hemoglobi 14.1 - g/dL Normal No Aug 16 n 18.0 informati 2016 6:09 [Mass/vol on in AM ume] in source Blood data Lymphocyt 0.7 - 4.5 K/mm3 Low No Aug 16 es informati 2016 6:09 [#/volume on in AM ] in source Unspecifi data ed specimen by Automated count Lymphocyt 10 - 50 % Low No Aug 16 es informati 2016 6:09 [#/volume on in AM ] in source Unspecifi data ed specimen by Automated count Erythrocy 27 - 31.2 pg High No Aug 16 te mean informati 2016 6:09 corpuscul on in AM ar source hemoglobi data n [Entitic mass] Erythrocy 31.8 - g/dl Low No Aug 16 te mean 35.4 informati 2016 6:09 corpuscul on in AM ar source hemoglobi data n concentra tion [Mass/vol ume] by Automated count Erythrocy 82.2 - fl High No Aug 29 te mean 97.8 informati 2016 6:09 corpuscul on in AM ar volume source [Entitic data volume] by Automated count Monocytes 0.1 - 1.0 K/mm3 Normal No Aug 16 informati 2016 6:09 [#/volume on in AM ] in source Blood by data Automated count Monocytes 1.7 - 9.3 % Normal No Aug 16 /100 informati 2017 6:09 leukocyte on in AM s in source Blood by data Automated count Platelet 7.4 - fl Normal No Aug 16 mean 10.4 informati 2016 6:09 volume on in AM [Entitic source volume] data in Blood by Automated count Platelets 142 - 424 K/mm3 Normal No Aug 16 informati 2016 6:09 [#/volume on in AM ] in source Blood data Erythrocy 4.6 - 6.2 M/mm3 Normal No Aug 16 yashira informati 2017 6:09 [#/volume on in AM ] in source Amniotic data fluid Erythrocy 11.5 - % Normal No Aug 16 te 17.5 informati 2016 6:09 distribut on in AM ion width source [Entitic data volume] by Automated count Leukocyte 4.8 - K/MM3 High No Aug 16 s 10.8 informati 2016 6:09 [#/volume on in AM ] in source Blood data Differential panel, method unspecified - Observa Value Referen Units Interpr Notes Date tion ce etation Range Neutrophi 0 - 8 % Normal No Aug 29 ls.band informati 2017 6:09 form/100 on in AM leukocyte source s in data Blood by Automated count LYMPH 4 10 - 50 % Low No Aug 16 informa 2016 tion in 6:09 AM source data Macrocy 1+ No No No No Aug 29 yashira informa informa informa informa 2016 [Presen tion in tion in tion in tion in 6:09 AM ce] in source source source source Blood data data data data Monocytes 2 - 9 % Normal No Aug 29 / informati 2017 6:09 leukocyte on in AM s in source Blood by data Automated count Platele NORMAL No No No No Aug 29 ts informa informa informa informa 2016 [Presen tion in tion in tion in tion in 6:09 AM ce] in source source source source Blood data data data data by Light microsc opy Neutrophi 42 - 76 % High No Aug 29 ls informati 2016 6:09 [#/volume on in AM ] in source Blood by data Automated count Cells No #CELLS No No Aug 29 Counted informati informati informati 2016 6:09 Total [#] on in on in on in AM in Blood source source source data data data Basic metabolic panel in Blood Observa Value Referen Units Interpr Notes Date tion ce etation Range Urea 7 - 18 mg/dL High No Aug 29 nitrogen informati 2016 6:09 [Mass/vol on in AM ume] in source Serum or data Plasma Calcium 8.5 - mg/dL Normal No Aug 29 [Mass/vol 10.1 informati 2016 6:09 ume] in on in AM Serum or source Plasma data Chloride 98 - 107 mmoL/L High No Aug 29 [Moles/vo informati 2016 6:09 lume] in on in AM Serum or source Plasma data Carbon 21.0 - mmoL/L Normal No Aug 29 dioxide, 32.0 informati 2016 6:09 total on in AM [Moles/vo source lume] in data Serum or Plasma Creatinin 0.70 - mg/dL No No Aug 29 e 1.30 informati informati 2016 6:09 [Mass/vol on in on in AM ume] in source source Serum or data data Plasma Creatinin 50 - 200 ML/MIN No No Aug 16 e renal informati informati 2016 6:09 clearance on in on in AM source source predicted data data by Cockcroft -Gault formula Estimated >60 ML/MIN No REFERENCE Aug 16 informati RANGE: 2017 6:09 glomerula on in >60 AM r source ML/MIN/1. filtratio data 73 SQUARE n rate METERSIf (GF this patient is -A merican, then multiply theresult by 1.210. Glucose 74 - 106 mg/dL High No Aug 29 [Mass/vol informati 2016 6:09 ume] in on in AM Serum or source Plasma data Potassium 3.5 - 5.1 mmoL/L Normal No Aug 29 informati 2016 6:09 [Moles/vo on in AM lume] in source Serum or data Plasma Sodium 136 - 145 mmoL/L Normal No Aug 29 [Moles/vo informati 2016 6:09 lume] in on in AM Serum or source Plasma data Digoxin [Mass/volume] in Serum or Plasma Observa Value Referen Units Interpr Notes Date tion ce etation Range Digoxin 1.15 - ng/mL Low No Aug 26 [Mass/vol 2.56 informati 2016 6:32 ume] in on in PM Serum or source Plasma data CBC W Auto Differential panel in Blood Observa Value Referen Units Interpr Notes Date tion ce etation Range Basophils 0 - 0.2 K/MM3 Normal No Aug 26 inform2016 6:32 [#/volume on in PM ] in [...] No Aug 26 te mean 35.4 informati 2016 6:32 corpuscul on in PM ar source hemoglobi data n concentra tion [Mass/vol ume] by Automated count Erythrocy 82.2 - fl Normal No Aug 26 te mean 97.8 informati 2016 6:32 corpuscul on in PM ar volume source [Entitic data volume] by Automated count Monocytes 0.1 - 1.0 K/mm3 Normal No Aug 26 informati 2016 6:32 [...] 424 K/mm3 Normal No Aug 26 informati 2016 6:32 [#/volume on in PM ] in source Blood data Erythrocy 4.6 - 6.2 M/mm3 Normal No Aug 26 yashira informati 2016 6:32 [#/volume on in PM ] in source Amniotic data fluid Erythrocy 11.5 - % Normal No Aug 26 te 17.5 informati 2016 6:32 distribut on in PM ion width source [Entitic data volume] by Automated count Leukocyte 4.8 - K/MM3 High No Aug 13 s 10.8 informati 2017 6:32 [#/volume on in PM ] in source Blood data
--- OUTSIDE RECORDS SUMMARY | 2017-09-06 10:20 | External Medical Summary Rpt | CCD ---
Demographics Preferred Language Mexican Marital Status Unknown Episcopalian Affiliation Unknown Race Unknown Ethnic Group Unknown Author Author , [employer] Address Unknown Phone Immunization Unable to retrieve immunization data due to connection failure with Immunization Registry. Please try again later.
--- NOTE | 2017-09-06 11:31 | CONSULT NOTE ---
Standard Demographics Patient Demo Date of Consultation: 09/06/17 Referring Provider: Alie Polk MD Reason for Consultation: CHF, CM PRIMARY DIAGNOSIS: SOA on exertion, fatigue Problem list Problem list: 1. Non-ischemic Cardiomyopathy A. Cardiac cath, 08/2017, normal coronaries with severe, dilated cardiomyopathy and LVEF of 30%. B. Cardiomyopathy by echo, 08/2017, MS Edwar, with EF 30% and dilated ventricles C. Cardiac cath, approximately 1999, no significant CAD. 2. ETOH use 3. Chronic paroxysmal atrial fibrillation, first diagnosed about 1999 A. Cardioversion 3 (1999, approximately 2004 and again in 2013) B. Chronic amiodarone and Eliquis therapy. 4. Family history of atrial fibrillation, father with complication of congestive heart failure History of present illness: History of present illness: 77-year-old white male with recurrent episodes of exertional shortness of breath for which he has been hospitalized with diagnosis of cardiomyopathy and congestive heart failure in the last month in [place], [place], and it [facility] last week was seen in the office today for follow-up. Patient relates he is not doing well. He has lost 15-20 pounds due to not eating because of having to walk downstairs and then back up which causes severe fatigue and shortness of breath. The patient was diuresed and felt better while here last week with low doses of diuretics which actually had to be adjusted due to hypotension. Patient was fitted with a LifeVest due to his severe cardiomyopathy. Due to worsening shortness of breath, weight loss, severe cardiomyopathy is felt that the patient would be best served with admission to the hospital and subsequent RIGHT heart catheterization to better define his volume status which will help guide medical therapy. I did speak with Dr. Polk who has agreed to admit the patient with cardiology consult. Past Medical History: General: Hypertension Yes CVA No Seizures No TB No COPD No Asthma No Diabetes No Angina No [place] No Hyperlipidemia No Urinary Yes Cancer Yes Rheumatic H.D. No Ulcers No MRSA No GB Disease No Other ARRHYTHMIA, MITRAL VALVE Additional hx Mitral valve prolapse AFIB (Rx Amiodarone) Past Surgical HX: Previous Surgery?Y CARTILAGE RT KNEE HEART CATHS-LAST 2001 SKIN CA REMOVED Allergies Coded Allergies: No Known Allergies (08/26/17) Home medications: Active Scripts VENLAFAXINE HCL (Venlafaxine HCl ER) 75 MG PO DAILY #90 CAP Prov: 08/31/17 Lisinopril 2.5 MG PO DAILY #30 TAB Ref 5 Prov: 08/31/17 Spironolactone 25 MG PO DAILY #30 TAB Ref 5 Prov: 08/31/17 Apixaban (Eliquis) 5 MG PO BID #60 TAB Ref 5 Prov: 08/31/17 TAMSULOSIN HCL (Flomax 0.4MG) 0.4 MG PO QHS #30 CAPSULE Ref 5 Prov: 08/31/17 Reported Medications Carvedilol (Carvedilol 3.125MG) 3.125 MG PO BID Furosemide (Furosemide) 20 MG PO DAILY VIT B COMP/C/FA/IRON/VIT E (Vitamin B Complex Tablet) 1 TAB PO DAILY Bupropion Hcl (Bupropion XL) 150 MG PO DAILY Digoxin (Digitek) 125 MCG PO DAILY Gabapentin (Gabapentin 100MG) 100 MG PO DAILY Gabapentin (Gabapentin 300MG) 300 MG PO QHS Amiodarone Hcl (Amiodarone 200MG) 200 MG PO DAILY ALPRAZOLAM (Alprazolam 0.5MG) 0.5 MG PO QHS POTASSIUM CHL (Potassium Chloride) 10 MEQ PO DAILY ALBUTEROL-IPRATROPIUM (Combivent Inhaler) 1 PUFFS IN QID Discontinued Reported Medications TAMSULOSIN HCL (Flomax 0.4MG) 0.4 MG PO QHS Prednisone (Prednisone 20MG) 20 MG PO BID Levofloxacin (Levofloxacin 750MG) 750 MG PO DAILY Apixaban (Eliquis) 5 MG PO BID Diltiazem Hcl (Cardizem Generic 30MG Tab) 30 MG PO TID VENLAFAXINE HCL (Venlafaxine HCl ER) 75 MG PO DAILY #90 CAP DC: 08/31/17 1211 Current Medications: Current Medications Digoxin 0.125 MG DAILY PO Spironolactone 25 MG DAILY PO Carvedilol 3.125 MG BID PO Fentanyl Citrate 25 MCG PRN PRN IV Fentanyl Citrate 50 MCG PRN PRN IV Flumazenil 0.2 MG PRN PRN IV Heparin Sodium (Beef Lung) 5,000 UNITS PRN PRN IV Heparin Sodium/Sodium Chloride 3,000 UNITS PRN PRN IV Lidocaine HCl 20 ML ONCE ONE IJ (DC) Midazolam HCl 1 MG PRN PRN IV Midazolam HCl 1 MG PRN PRN IV Naloxone HCl 0.4 MG [id number] PRN IV Nitroglycerin 800 MCG PRN PRN IV Verapamil HCl 5 MG PRN PRN IV Immunization HX DT/Tetanus 5-10 Years Flu Refused Pneumonia RECEIVED IN PAST Family history Family HX Diabetes No CAD No Hypertension No Hyperlipidemia No Cancer No TB No Social Hx: Smoking HX Packs/day < 1 PACK Alcohol Alcohol: Yes Hx of Drug Use Drug Use? No Patien't marital status is single Patient's support system is good Review of systems: Constitutional weakness. Respiratory see HPI, SOB with excertion. Cardiovascular see HPI Gastrointestinal/Abdominal No no symptoms reported Genitourinary No: no symptoms reported. Musculoskeletal back pain. Neurological No: no symptoms reported. Exam: Admission Vital Signs: 1ST Vital Signs Result Date Time Pulse Ox 96 09/06 1048 B/P 129/64 09/06 1048 O2 Delivery ROOM AIR 09/06 1048 Temp 97.7 09/06 1048 Pulse 48 09/06 1048 Resp 18 09/06 1048 Last Vital Signs: Vital Signs Result Date Time Pulse Ox 94 09/06 1120 B/P 113/68 09/06 1120 Temp 97.7 09/06 1120 Pulse 79 09/06 1120 Resp 18 09/06 1120 O2 Delivery ROOM AIR 09/06 1048 Exam General appearance: alert, awake, Patient appears pale and weak. Neck: no carotid bruit, no JVD Cardiovascular: regular rate & rhythm Respiratory: diminished breath sounds bilaterally without rales or wheezing at this time. ABD: soft, no tenderness Extremities: moves all, no peripheral edema Neuro: alert, intact, oriented Plan: Assessment: 1. Severe cardiomyopathy, nonischemic and dilated in origin. Possibly related to history of medication noncompliance and recent increase in alcohol use after the of his earlier this year. Will continue Coreg and consider Entresto therapy in place of lisinopril and diuretics. 2. 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 Atrial fibrillation with mildly elevated ventricular response at this time. Patient is on amiodarone with plans to discontinue this due to possible pulmonary fibrosis as an etiology for his dyspnea. 4. Fatigue, multifactorial Recommendations: Patient is to be admitted. We'll proceed with RIGHT heart catheterization today with possibility of leaving a [place] catheter inserted to guide medical management. at 1221 a [place]marie catheter inserted to guide medical management.
--- NOTE | 2017-09-06 13:41 | HISTORY AND PHYSICAL REPORT ---
See Addendum History and Physical (FCA) Date of admission: 09/06/17 Chief complaint: SOA History: History of Present Illness: 77-year-old white male with recurrent episodes of exertional shortness of breath for which he has been hospitalized with diagnosis of cardiomyopathy and congestive heart failure in the last month in [place], [place], and at [facility] last week. He was seen in the office today for follow-up. Patient relates he is not doing well. He has lost 15-20 pounds due to not eating because of having to walk downstairs and then back up which causes severe fatigue and shortness of breath. The patient was diuresed and felt better while here last week with low doses of diuretics which actually had to be adjusted due to hypotension. Patient was fitted with a LifeVest due to his severe cardiomyopathy. Due to worsening shortness of breath, weight loss, severe cardiomyopathy he was admitted to the hospital for subsequent RIGHT heart catheterization to better define his volume status which will help guide medical therapy. At time of this exam patient is awaiting heart cath. He is comfortable. Past Medical History: Medical History: CAD? No Angina: No MS: No Hypertension? Yes Hyperlipidemia? No CHF? Yes DVT? No PE? No COPD? No Asthma? No Anemia? No GERD? No Gastric ulcers? No GI Bleed? No Hernia? No Thyroid Problems? No Hypothyroidism? No CVA? No Seizures? No Diabetes? No Renal Insuffiency? No UTI? No Stones? No BPH? Yes GB Disease: No Nephritic Syndrome? No Asplenia? No Hepatitis? No Sickle Cell Disease? No Arthritis? No Migraines? No Cataracts? No Glaucoma? No MRSA? No HIV? No TB? No Anxiety? Yes Depression? Yes Cancer? Yes Site: SKIN (REMOVED) More? Yes Additional hx: Mitral valve prolapse AFIB (Rx Amiodarone) cardiomyopathy Surgical history: Previous Surgery?Y CARTILAGE RT KNEE HEART CATHS-LAST 2001 SKIN CA REMOVED Medications: Active Scripts VENLAFAXINE HCL (Venlafaxine HCl ER) 75 MG PO DAILY #90 CAP Prov: 08/31/17 Carvedilol (Coreg 3.125MG) 3.125 MG PO BID #60 TAB Ref 5 Prov: 08/31/17 Lisinopril 2.5 MG PO DAILY #30 TAB Ref 5 Prov: 08/31/17 Spironolactone 25 MG PO DAILY #30 TAB Ref 5 Prov: 08/31/17 Furosemide (Lasix) 20 MG PO DAILY #30 TAB Ref 5 Prov: 08/31/17 Apixaban (Eliquis) 5 MG PO BID #60 TAB Ref 5 Prov: 08/31/17 TAMSULOSIN HCL (Flomax 0.4MG) 0.4 MG PO QHS #30 CAPSULE Ref 5 Prov: 08/31/17 Reported Medications VIT B COMP/C/FA/IRON/VIT E (Vitamin B Complex Tablet) 1 TAB PO DAILY Bupropion Hcl (Bupropion XL) 150 MG PO DAILY Digoxin (Digitek) 125 MCG PO DAILY Gabapentin (Gabapentin 100MG) 100 MG PO DAILY Gabapentin (Gabapentin 300MG) 300 MG PO QHS Amiodarone Hcl (Amiodarone 200MG) 200 MG PO DAILY ALPRAZOLAM (Alprazolam 0.5MG) 0.5 MG PO QHS POTASSIUM CHL (Potassium Chloride) 10 MEQ PO DAILY ALBUTEROL-IPRATROPIUM (Combivent Inhaler) 1 PUFFS IN QID Discontinued Reported Medications TAMSULOSIN HCL (Flomax 0.4MG) 0.4 MG PO QHS Prednisone (Prednisone 20MG) 20 MG PO BID Levofloxacin (Levofloxacin 750MG) 750 MG PO DAILY Apixaban (Eliquis) 5 MG PO BID Diltiazem Hcl (Cardizem Generic 30MG Tab) 30 MG PO TID VENLAFAXINE HCL (Venlafaxine HCl ER) 75 MG PO DAILY #90 CAP DC: 08/31/17 1211 Allergies: Coded Allergies: No Known Allergies (08/26/17) Family History: Family history: Negative for: CAD, DM, cancer, stroke. Social History: Smoking Hx Tobacco: No Alcohol: Alcohol: Yes Hx of Drug Use: Drug Use? No Review of Systems: Cardiovascular Positive for: PEREZ, palpitations. No: chest pain, edema. Respiratory Positive for: dyspnea on exertion, shortness of air. No: non-productive, productive cough (sputum). GI Positive for: nausea. No: GERD, abdominal pain, constipation, diarrhea, hematemeis, hematochezia, melena, vomitting. (male) No: frequency, hematuria. Neurological Positive for: dizziness, headache. No: confusion, seizure, syncope. Musculoskeletal No: extremity pain. Physical Exam: Vital signs: 1ST Vital Signs Result Date Time Pulse Ox 96 09/06 1048 B/P 129/64 09/06 1048 O2 Delivery ROOM AIR 09/06 1048 Temp 97.7 09/06 1048 Pulse 48 09/06 104 Resp 18 09/06 1048 Exam: General appearance: alert, active, no acute distress, joking Eyes: anicteric, pupils reactive to light ENT: mucous membranes moist, pharynx normal Neck: no carotid bruit, full range of motion, supple, lymphadenopathy (absent ), thyroid (normal) Cardiovascular: irregularly irregular Respiratory: clear to auscultation (bilat anterior and posterior) ABD: non-distended, soft, no tenderness, no guarding, bowel sounds present Extremities: full range of motion, no peripheral edema, KENIA hose on Neuro: alert, oriented, speech clear Lab data: Labs: pending Radiology results: Results: pending Diagnosis(es): 1. CHF (congestive heart failure) 2. Dilated cardiomyopathy Status: Acute 3. Reactive depression 4. Chronic atrial fibrillation Status: Chronic Plan: for heart cath; meds as per cardiology at 1341 at 1902
[2017-09-06] MEDS ORDERED: CARVEDILOL3.125 MG PO (14:58)
[2017-09-06] MEDS ORDERED: FUROSEMIDE 20MG20 MG PO (15:03)
--- NOTE | 2017-09-06 15:34 | PHARMACY CLINIC NOTE ---
Patient Demographics Patient Demographics Admission date: 09/06/17 Date: 09/06/17 Time: 1533 Allergies Coded Allergies: No Known Allergies (08/26/17) HEIGHT- FT: 6 IN: 0.00 K.165 VTE General Information Disclaimer The following section includes nursing documentation that has been pulled in for pharmacy review. Patient's VTE score: 3 Patient's VTE Risk: LOW RISK Clinical trial participant? No VTE prophylaxis [id number] VTE prophylaxis ordered? Yes Type of prophylaxis/treatment: KENIA at 1530
[2017-09-06 15:45] LABS: ARTERIAL O2 SAT CATH LAB 77 % (90-100); VENOUS O2 SAT CATH LAB 78 % (75-80)
--- NOTE | 2017-09-06 16:06 | RADIOLOGY REPORT PS360 ---
CHEST(2 VIEWS-NOT PORTABLE) HISTORY: CHF VS PULMONARY FIBROSIS ORDERING PHYSICIAN: Wayne Polk MD PATIENT AGE: 77 years COMPARISON: 08/26/2017 FINDINGS: Normal heart size. There is overlying artifact from heart monitoring device. Chronic pulmonary changes with COPD are once again noted previously noted density in the right lower lobe has improved. No lobar consolidation or collapse. IMPRESSION: Chronic changes with COPD. Resolved right infrahilar infiltrate
[2017-09-07] VITALS (8 sets, daily range): BP systolic 91–107; BP diastolic 47–65
--- NOTE | 2017-09-07 08:11 | ACUTE CARE PROGRESS NOTE (QUA) ---
See Addendum Progress Notes Subjective Date 09/07/17 Time 0804 Note Pt states he does feel a little better today. He is still SOA in the am and he is c/o worsening of his restless legs in the am that can last anywhere from 15- 45 minutes. He denies any pain. He slept off and on and ate most of his breakfast this am. Objective Findings Last VS-Temp:98.4 B/P:106/47 Pulse:96 Resp:18 SaO2:95 ROOM AIR Last weight lbs:207 oz:5 K.035 Method:Bed Scales Laboratory Tests 09/06/17 1510: ABG O2 Sat (Measured) 77 L, VBG O2 Sat (Moe) 78 09/06/17 1348: Sodium 136, Potassium 5.2 H, Chloride 102, Carbon Dioxide 25, BUN 30 H, Creatinine 1.3, Estimated Creat Clear 60, Estimated GFR (MDRD) 53, Glucose 97, Calcium 8.6, B-Natriuretic Peptide 44 CXR - Chronic changes with COPD. Resolved right infrahilar infiltrate Exam General appearance: alert, awake, no acute distress Cardiovascular: irregularly irregular Respiratory: clear to auscultation ABD: non-distended, normal bowel sounds, no rebound, soft, no tenderness, no guarding Extremities: no peripheral edema Assessment/Plan Problem List 1. CHF (congestive heart failure) 2. Dilated cardiomyopathy Status: Acute 3. Reactive depression 4. Chronic atrial fibrillation Status: Chronic Plan: Heart cath report not available yet. CXR showed nothing acute. Cardiology to follow. Will discuss restless leg symptoms with Dr. Polk. This inpt stay is expected to cross 2 MNs from start of care Yes at 0811 at 0836
[2017-09-07 09:26] LABS: HEMOGLOBIN 16.4 g/dL (14.1-18.0); LYMPH % 11.7 % (10-50)
--- NOTE | 2017-09-07 11:07 | RADIOLOGY REPORT PS360 ---
CT CHEST W/O CONTRAST HISTORY: SOA ON EXERTION,FATIGUE, HIGH RESOLUTION ORDERING PHYSICIAN: Wayne Polk MD PATIENT AGE: 77 years TECHNIQUE: Axial images are obtained without contrast. Both standard and high-resolution images are obtained.. COMPARISON: None FINDINGS: Normal heart size. There is minimal thickening of the pericardium anteriorly. No mediastinal or hilar mass or adenopathy. There is mild right apical pleural thickening. Mild fibrotic changes are present in the left apex. A noncalcified nodule is present in the right middle lobe 3 mm. Noncalcified right lower lobe 3 mm. Calcified granulomas present in the left lung base laterally. There are mild atelectatic changes or fibrotic change in the left lung base with mild bronchial thickening. Hyperdensity is present in the subpleural region of the left lower lobe superior segment posteriorly is may represent a small clip or focal linear area of calcification. Minimal atelectatic changes present in the lung bases Upper abdominal images are unremarkable. No acute bony anomalies are evident. High-resolution images show scattered areas of fibrosis in the lung bases. No generalized interstitial thickening or interstitial lung disease. There is some minimal paraseptal emphysematous change IMPRESSION: 1. Scattered areas of pulmonary fibrosis with evidence of old granulomatous disease. 2. No evidence of diffuse interstitial lung disease. 3. There is some minimal paraseptal emphysematous change
--- NOTE | 2017-09-07 12:58 | ACUTE CARE PROGRESS NOTE (QUA) ---
Progress Notes Subjective Date 09/07/17 Time 1251 Note 77 yo WM at bedside eating lunch in NAD. Feeling better since med changes ( holding lisinopril and lasix). Still with low BP at times and dizziness with standing but improved. Objective Findings Last VS-Temp:97.9 B/P:91/51 Pulse:88 Resp:20 SaO2:92 ROOM AIR Last weight lbs:207 oz:5 K.036 Method:Bed Scales Exam General appearance: alert, awake, no acute distress Cardiovascular: irregularly irregular Respiratory: clear to auscultation Extremities: moves all, no peripheral edema Neuro: alert, intact, oriented Reviewed: medications, vital signs, lab results Assessment/Plan Problem List 1. CHF (congestive heart failure) 2. Dilated cardiomyopathy Status: Acute 3. Reactive depression 4. Chronic atrial fibrillation Status: Chronic Patient condition Guarded Plan: Answered multiple questions regarding treatment of atrial fibrillation. Results of right heart cath showed Pulmonary wedge pressure of 8 mm Hg. RA pressure was 5 mm Hg. This is suggestive of low cardiac output state which is why patient was intolerant of even low doses of diuretic. Medication changes have been made and will need 24-48 hrs to see results. It would be best to monitor in hospital and if he continues to be tenuous, then consideration of cardioversion will be considered to give the patient that atrial kick for improved efficiency. He continues on eliquis and low dose amiodarone. This inpt stay is expected to cross 2 MNs from start of care Yes at 1253
--- NOTE | 2017-09-07 13:45 | RADIOLOGY REPORT PS360 ---
CARDIAC CATHETERIZATION DATE OF CATHETERIZATION: PROCEDURES: 1. Right heart catheterization 2. Right internal jugular vein access INDICATION FOR TEST: 1. Systolic congestive heart failure 2. Pulmonary hypertension 3. Class IV congestive heart failure Informed consent was obtained prior to the procedure. COMPLICATIONS: None ESTIMATED BLOOD LOSS: Less than 10 ml. TECHNIQUE: One percent lidocaine was used to anesthetize the right anterior aspect of the neck. A tile classifier needle was used to identify the right internal jugular vein. Following this a larger cannulation needle was used to cannulate the right internal jugular vein and a wire was passed into the vein. Prior to the 7 Swedish sheath being inserted the wire was confirmed under fluoroscopic guidance to be in the inferior vena cava. A 7 Swedish sheath was introduced and a [place]-Rosemarie catheter was floated using hemodynamic waveforms in the pulmonary artery, right ventricle , and right atrium. Saturations were obtained in the pulmonary artery and the right atrium. At the end of the procedure the patient was transferred to the postop holding area in stable condition for sheath removal. HEMODYNAMICS: Right atrial pressure is 5 mm Hg. Right ventricular pressure is 22/5 mm Hg. Pulmonary arterial pressure is 22/14 mm Hg. Pulmonary artery occlusion pressure is 8 mm Hg. SATURATIONS: RA is 78 %. PA is 77 %. IMPRESSION: 1. Patient is euvolemic PLAN: 1. We'll hold diuretics 2. Patient is currently euvolemic. 3. I would like to discontinue amiodarone. I believe this might be contributing to his fatigue. Furthermore patient remains in atrial fibrillation. 4. Check TSH free T4 and reverse T3
--- NOTE | 2017-09-07 13:45 | RADIOLOGY REPORT PS360 ---
CARDIAC CATHETERIZATION DATE OF CATHETERIZATION: PROCEDURES: 1. Right heart catheterization 2. Right internal jugular vein access INDICATION FOR TEST: 1. Systolic congestive heart failure 2. Pulmonary hypertension 3. Class IV congestive heart failure Informed consent was obtained prior to the procedure. COMPLICATIONS: None ESTIMATED BLOOD LOSS: Less than 10 ml. TECHNIQUE: One percent lidocaine was used to anesthetize the right anterior aspect of the neck. A computer artist needle was used to identify the right internal jugular vein. Following this a larger cannulation needle was used to cannulate the right internal jugular vein and a wire was passed into the vein. Prior to the 7 Yi sheath being inserted the wire was confirmed under fluoroscopic guidance to be in the inferior vena cava. A 7 Yi sheath was introduced and a [place]-Rosemarie catheter was floated using hemodynamic waveforms in the pulmonary artery, right ventricle , and right atrium. Saturations were obtained in the pulmonary artery and the right atrium. At the end of the procedure the patient was transferred to the postop holding area in stable condition for sheath removal. HEMODYNAMICS: Right atrial pressure is 5 mm Hg. Right ventricular pressure is 22/5 mm Hg. Pulmonary arterial pressure is 22/14 mm Hg. Pulmonary artery occlusion pressure is 8 mm Hg. SATURATIONS: RA is 78 %. PA is 77 %. IMPRESSION: 1. Patient is euvolemic PLAN: 1. We'll hold diuretics 2. Patient is currently euvolemic. 3. I would like to discontinue amiodarone. I believe this might be contributing to his fatigue. Furthermore patient remains in atrial fibrillation. 4. Check TSH free T4 and reverse T3
[2017-09-08] VITALS (7 sets, daily range): BP systolic 117–141; BP diastolic 59–80
--- NOTE | 2017-09-08 08:12 | ACUTE CARE PROGRESS NOTE (QUA) ---
Progress Notes Subjective Date 09/08/17 Time 0810 Note Pt states he feels a little better today. Not quite as fatigued. He had a rough night and couldn't sleep. He needs his tamsulosin reordered. He is awaiting cardiology this am to discuss cardioversion. Objective Findings Last VS-Temp:97.6 B/P:127/59 Pulse:64 Resp:18 SaO2:94 ROOM AIR Last weight lbs:208 oz:6 K.517 Method:Bed Scales Laboratory Tests 09/07/17 0857: TSH 1.16 09/07/17 0857: Sodium 136, Potassium 4.8, Chloride 105, Carbon Dioxide 24, BUN 25 H, Creatinine 1.3, Estimated Creat Clear 61, Estimated GFR (MDRD) 53, Glucose 98, Calcium 8.7, WBC 8.9, RBC 5.16, Hgb 16.4, Hct 49.5, MCV 95.8, RDW 14.3, Plt Count 129 L, MPV 9.2, Gran % 78.1, Gran # 6.9, Lymphocytes % 11.7, Monocytes % 9.2, Eosinophils % 0.7, Basophils % 0.4, Lymphocytes # 1.0, Monocytes # 0.8, Eosinophils # 0.1, Basophils # 0.0, PUBS MCHC 33.1, MCH 31.8 H, Digoxin 0.[address] chest 1. Scattered areas of pulmonary fibrosis with evidence of old granulomatous disease. 2. No evidence of diffuse interstitial lung disease. 3. There is some minimal paraseptal emphysematous change Exam General appearance: alert, awake, no acute distress Cardiovascular: irregularly irregular Respiratory: clear to auscultation ABD: non-distended, normal bowel sounds, no rebound, soft, no tenderness, no guarding Extremities: no peripheral edema Assessment/Plan Problem List 1. CHF (congestive heart failure) 2. Dilated cardiomyopathy Status: Acute 3. Reactive depression 4. Chronic atrial fibrillation Status: Chronic Plan: Will reorder tamsulosin. Cardiology to follow today. This inpt stay is expected to cross 2 MNs from start of care Yes at 0818
--- NOTE | 2017-09-08 10:11 | ACUTE CARE PROGRESS NOTE (QUA) ---
See Addendum Progress Notes Subjective Date 09/08/17 Time 1009 Note 77 yo WM in bed in NAD. Objective Findings Last VS-Temp:97.8 B/P:117/78 Pulse:64 Resp:18 SaO2:94 ROOM AIR Last weight lbs:208 oz:6 K.517 Method:Bed Scales Exam General appearance: alert, awake, no acute distress Cardiovascular: irregularly irregular Respiratory: clear to auscultation Extremities: moves all, no peripheral edema Neuro: alert, intact, oriented Reviewed: medications, vital signs, lab results Assessment/Plan Problem List 1. CHF (congestive heart failure) 2. Dilated cardiomyopathy Status: Acute 3. Reactive depression 4. Chronic atrial fibrillation Status: Chronic Patient condition Stable Plan: Discussed with Dr. CHIRINOS about cardioversion. He would like to get echo today to assess LV and LA size and function as well as increase amiodarone back to 200 mg daily. Upon review of echo, decision on cardioversion will be made. . This inpt stay is expected to cross 2 MNs from start of care Yes at 9064
--- NOTE | 2017-09-08 17:07 | RADIOLOGY REPORT PS360 ---
PROCEDURE: 2-D M-mode and color Doppler study INDICATIONS FOR THE TEST: Chest pain COPD Heart Murmur Tobacco Smoking+ Palpitations+ Fatigue Syncope Edema Hypertension+Diabetes Mellitus Rheumatic Fever SOB PEREZ+Obesity Hyperlipidemia+ Family History HD Additional History Afib, CHF PATIENT INFORMATION HEIGHT: 72 WEIGHT: 208 GENDER: Male B/P:127/59 2-D/M-MODE INTERPRETATION: 2-D MEASUREMENTS OBSERVED VALUES IN CMS Right Ventricular Dimension (RVDd) 2.8 Interventricular Septum (Thickness)(IVsd) 1.0 Left Ventricular Internal Dimensions(LVIDd) 5.1 Left Ventricular Posterior Wall (Thickness)(LVPWd) 1.0 Aortic Root 3.0 Aortic Cusp Separation 2.3 Left Atrial Dimensions (LAD) 4.2 2D 1. Technically difficult study because of the patient's factor and poor acoustic windows. 2. The left atrium is mildly enlarged, left ventricle is normal size, left ventricle wall thickness is upper limit of normal, visually estimated ejection fraction approximately 40-45%, there is abnormal septal motion, endocardial surfaces are poorly visualized. 3. The right atrium is normal size, right ventricle is mildly enlarged with normal contractility. 3. The aortic valve is minimally thickened and fibrosed. 4. The mitral valve leaflets are not well visualized. There is mild thickening and buckling of the anterior mitral leaflet seen. 5. The tricuspid valve is grossly normal. 6. The pulmonic valve is poorly visualized. 7. No significant pericardial effusion noted. DOPPLER INTERROGATION: Doppler interrogation of the aortic, mitral and tricuspid valvular presence of at least moderate mitral and mild tricuspid regurgitation, tricuspid and jet velocity insufficient for cannulation of the right ventricular systolic pressure. CONCLUSION: 1. Technically difficult study because of the patient's factor and poor acoustic windows. 2. Mildly enlarged left atrium, normal left ventricular size, visually estimated ejection fraction 40-45%, there is abnormal septal motion, endocardial surfaces are poorly visualized. 3. Mildly enlarged right ventricle with normal contractility. 4. Mitral valve morphology is not well visualized, the anterior mitral leaflet is minimally thickened, and has mild buckling, there is mitral regurgitation which is likely a moderate range. 5. Mild tricuspid regurgitation. 6. No significant pericardial effusion noted.
[2017-09-09] VITALS (14 sets, daily range): BP systolic 91–144; BP diastolic 56–77
--- NOTE | 2017-09-09 08:12 | ACUTE CARE PROGRESS NOTE (QUA) ---
Progress Notes Subjective Date 09/09/17 Time 0807 Note 77 yo WM in NAD. Ready for cardioversion. Informed of improvement of EF and no continued need for the LifeVest. Telemetry is atrial fibrillation with CVR. Objective Findings Last VS-Temp:98.0 B/P:105/73 Pulse:79 Resp:18 SaO2:93 ROOM AIR Last weight lbs:201 oz:4 K.285 Method:Bed Scales Exam General appearance: alert, awake, no acute distress Cardiovascular: irregularly irregular Respiratory: clear to auscultation Reviewed: medications, vital signs, lab results Assessment/Plan Problem List 1. CHF (congestive heart failure) 2. Dilated cardiomyopathy Status: Acute 3. Reactive depression 4. Chronic atrial fibrillation Status: Chronic Patient condition Stable Plan: Proceed with cardioversion and plan discharge home today on current meds. This inpt stay is expected to cross 2 MNs from start of care Yes at 6787
--- NOTE | 2017-09-09 08:26 | ACUTE CARE PROGRESS NOTE (QUA) ---
Progress Notes Subjective Date 09/09/17 Time 0824 Note Pt states he feels a little better today. He is going to be cardioverted today and then can possibly be discharged home. He denies any pain and his EF has improved. Objective Findings Last VS-Temp:98.0 B/P:105/73 Pulse:79 Resp:18 SaO2:93 ROOM AIR Last weight lbs:201 oz:4 K.285 Method:Bed Scales Laboratory Tests 09/08/17 2007: POC Glucose 102 Exam General appearance: alert, awake, no acute distress Cardiovascular: irregularly irregular Respiratory: clear to auscultation ABD: non-distended, normal bowel sounds, no rebound, soft, no tenderness, no guarding Extremities: no peripheral edema Assessment/Plan Problem List 1. CHF (congestive heart failure) 2. Dilated cardiomyopathy Status: Acute 3. Reactive depression 4. Chronic atrial fibrillation Status: Chronic Plan: Pt to have cardioversion today and then possible discharge home. May not need life vest. This inpt stay is expected to cross 2 MNs from start of care No at 0873
--- NOTE | 2017-09-09 11:46 | Procedure Note ---
Electrocardioversion Date of procedure: 09/09/17 Time of procedure: 1130 Surgeon: TARAN Alvarado Diagnosis: A. fib with CVR Procedure Summary: After informed consent obtained, Anesthesia provided adequate sedation and patient received a single synchronized 200 J shock with successful conversion to NSR. He was recovered in the cardiac laborer salvage prior to sending back to the floor. No complications noted. Complications: None Conclusion: Successful cardioversion from A. fib to NSR. at 2492
--- NOTE | 2017-09-09 11:46 | Procedure Note ---
Electrocardioversion Date of procedure: 09/09/17 Time of procedure: 1130 Surgeon: TARAN Alvarado Diagnosis: A. fib with CVR Procedure Summary: After informed consent obtained, Anesthesia provided adequate sedation and patient received a single synchronized 200 J shock with successful conversion to NSR. He was recovered in the cardiac forestry laborer prior to sending back to the floor. No complications noted. Complications: None Conclusion: Successful cardioversion from A. fib to NSR. at 3794
[2017-09-09] MEDS ORDERED: OXAZEPAM10 MG PO (14:12)
[2017-09-09] MEDS ORDERED: METOPROLOL SUCC25 M2 PO (14:13)
--- NOTE | 2017-09-14 09:05 | DISCHARGE SUMMARY STANDARD ---
Discharge Summary (FCA2) Date of admission: 09/06/17 Date of discharge: 09/09/17 Problem List: 1. CHF (congestive heart failure) 2. Dilated cardiomyopathy 3. Reactive depression 4. Chronic atrial fibrillation History of present illness: 77-year-old white male with recurrent episodes of exertional shortness of breath for which he has been hospitalized with diagnosis of cardiomyopathy and congestive heart failure in the last month in [place], [place], and at [facility] last week. He was seen in the office for follow-up. Patient related he was not doing well. He had lost 15-20 pounds due to not eating because of having to walk downstairs and then back up which caused severe fatigue and shortness of breath. The patient was diuresed and felt better while here last week with low doses of diuretics which actually had to be adjusted due to hypotension. Patient was fitted with a LifeVest due to his severe cardiomyopathy. Due to worsening shortness of breath, weight loss, and severe cardiomyopathy, he was admitted to the hospital for subsequent RIGHT heart catheterization to better define his volume status which will help guide medical therapy. Exam on admission: General appearance: alert, active, no acute distress, joking Eyes: anicteric, pupils reactive to light ENT: mucous membranes moist, pharynx normal Neck: no carotid bruit, full range of motion, supple, lymphadenopathy (absent ), thyroid (normal) Cardiovascular: irregularly irregular Respiratory: clear to auscultation (bilat anterior and posterior) ABD: non-distended, soft, no tenderness, no guarding, bowel sounds present Extremities: full range of motion, no peripheral edema, KENIA hose on Neuro: alert, oriented, speech clear Hospital Course: The patient was switched to Metoprolol from Carvedilol to improve BP. His Amiodarone was decreased. Oxazepam tid was added for anxiety and restless leg syndrome. His BNP was normal on admission and after diuresis, he began feeling dizzy. His lisinopril and lasix were held and he began feeling better. Results of right heart cath showed pulmonary wedge pressure of 8 mm Hg. RA pressure was 5 mm Hg. This was suggestive of low cardiac output state which is why patient was intolerant of even low doses of diuretics. He was continued on eliquis and a low dose amiodarone. Dr. CHIRINOS ordered an echo and increased his amiodarone back to 200 mg daily. His echo showed an EF slightly better than on cardiac cath. LVEF approximately 30-40%. Upon review of the echo, the decision was made to cardiovert without SYDNIE since patient had been on longterm amiodarone and eliquis without prolonged interruption. The patient received a single synchronized 200 J shock with successful conversion to NSR. He was recovered in the cardiac laboratory miller and was stable to be discharged home later that day. He will f/u with cardiology and Dr. Polk. Discharge medications: Stop taking the following medications: ALPRAZOLAM (Alprazolam 0.5MG) 0.5 MG TABLET ORAL AT BEDTIME NIGHTLY POTASSIUM CHL (Potassium Chloride) 10 MEQ TABLET.ER ORAL DAILY Carvedilol (Carvedilol 3.125MG) 3.125 MG TABLET ORAL TWICE A DAY Continue taking these medications: VIT B COMP/C/FA/IRON/VIT E (Vitamin B Complex Tablet) 1 EACH TABLET 1 TABLET ORAL DAILY Bupropion Hcl (Bupropion XL) 150 MG TAB.ER.24H 150 MILLIGRAM ORAL DAILY Digoxin (Digitek) 125 MCG TABLET 125 MICROGRAM ORAL DAILY Gabapentin (Gabapentin 100MG) 100 MG CAPSULE 100 MILLIGRAM ORAL DAILY Gabapentin (Gabapentin 300MG) 300 MG CAPSULE 300 MILLIGRAM ORAL AT BEDTIME NIGHTLY Amiodarone Hcl (Amiodarone 200MG) 200 MG TABLET 200 MILLIGRAM ORAL DAILY ALBUTEROL-IPRATROPIUM (Combivent Inhaler) 14.7 GM AER.W.ADAP 1 PUFFS IN VITRO FOUR TIMES A DAY VENLAFAXINE HCL (Venlafaxine HCl ER) 75 MG CAP.ER.24H 75 MILLIGRAM ORAL DAILY Qty = 90 Lisinopril (Lisinopril) 2.5 MG TABLET 2.5 MILLIGRAM ORAL DAILY Qty = 30 Spironolactone (Spironolactone) 25 MG TABLET 25 MILLIGRAM ORAL DAILY Qty = 30 Apixaban (Eliquis) 5 MG TABLET 5 MILLIGRAM ORAL TWICE A DAY Qty = 60 TAMSULOSIN HCL (Flomax 0.4MG) 0.4 MG CAP.ER.24H 0.4 MILLIGRAM ORAL AT BEDTIME NIGHTLY Qty = 30 Furosemide (Furosemide) 20 MG TABLET 20 MILLIGRAM ORAL DAILY Instructions: ONLY TAKES WHEN HE GAINS 4 LBS OR MORE Start taking the following new medications: Oxazepam (Oxazepam 10MG) 10 MG CAPSULE 10 MILLIGRAM ORAL THREE TIMES A DAY Qty = 90 Refills = 1 Metoprolol Succinate (Metoprolol Succinate) 25 MG TAB.ER.24H 12.5 MILLIGRAM ORAL DAILY Qty = 30 Refills = 3 Disposition: F/U with: Wayne Polk MD Follow up: 5 DAYS Activity: Limited activity Diet: Continue same diet Discharge to: HOME Agency needed? N at 0905
== END 2017-09-09 15:53 | disposition home or self-care (01) ==
LOC: CARDIO 08:47 → 2ND 10:10
PROVIDERS: Family Medicine; Internal Medicine
PROC: 4A023N6 Measurement of Cardiac Sampling and Pressure, Right Heart, Percutaneous Approach (ICD-10-PCS; principal; 2017-09-06 15:15)
PROC: 5A2204Z Restoration of Cardiac Rhythm, Single (ICD-10-PCS; 2017-09-09)
DX: I50.20 Unspecified systolic (congestive) heart failure (principal); I27.20 Pulmonary hypertension, unspecified; I48.0 Paroxysmal atrial fibrillation; Z23 Encounter for immunization; Z72.0 Tobacco use; Z79.01 Long term (current) use of anticoagulants; I34.1 Nonrheumatic mitral (valve) prolapse; E11.9 Type 2 diabetes mellitus without complications
CPT/HCPCS: C1894; G0378; J1644; Q2038

== ENCOUNTER → 2017-10-03 | Day surgery (SDC) | payer MEDICARE, BC ==
[~2017-10-03] MED LIST changes: +CARVEDILOL3.125 MG PO; +FUROSEMIDE 20MG20 MG PO; +METOPROLOL SUCC25 M2 PO; +OXAZEPAM10 MG PO
[2017-10-03 08:23] VITALS: BP 109/58
--- NOTE | 2017-10-05 13:33 | Operative Note ---
Procedure: Date of procedure: 10/03/17 Time of procedure: 0900 Procedure performed: Implantation of Loop Recorder Indication: Non-ischemic, dilated cardiomyopathy Paroxysmal Atrial fibrillation Syncope Technique: Technique: 1 percent lidocaine with epinephrine used to anesthetize the size. The LEFT anterior aspect of the chest along the LEFT sternal border. Using the preformed scalpel, an incision was made in the loop recorder was placed subcutaneously without difficulty. Following the deployment of the loop recorder interrogation of the device was performed to ensure appropriate voltage was being detected. Once this was verified. Steri-Strips were placed over the incision and the patient was prepped to discharge home. Patient tolerated procedure well with minimal discomfort. Impression: Successful deployment of loop recorder Serial number: [id number] Plan: Routine post op care at 0654
--- NOTE | 2017-10-05 13:33 | Operative Note ---
Procedure: Date of procedure: 10/03/17 Time of procedure: 0900 Procedure performed: Implantation of Loop Recorder Indication: Non-ischemic, dilated cardiomyopathy Paroxysmal Atrial fibrillation Syncope Technique: Technique: 1 percent lidocaine with epinephrine used to anesthetize the size. The LEFT anterior aspect of the chest along the LEFT sternal border. Using the preformed scalpel, an incision was made in the loop recorder was placed subcutaneously without difficulty. Following the deployment of the loop recorder interrogation of the device was performed to ensure appropriate voltage was being detected. Once this was verified. Steri-Strips were placed over the incision and the patient was prepped to discharge home. Patient tolerated procedure well with minimal discomfort. Impression: Successful deployment of loop recorder Serial number: [id number] Plan: Routine post op care at 0654
== END ==
LOC: CATHLAB 09-30 12:45
PROVIDERS: Internal Medicine
PROC: 0JH632Z Insertion of Monitoring Device into Chest Subcutaneous Tissue and Fascia, Percutaneous Approach (ICD-10-PCS; principal; 2017-10-03 08:30)
DX: I95.1 Orthostatic hypotension (principal); I48.0 Paroxysmal atrial fibrillation; I42.0 Dilated cardiomyopathy; I50.20 Unspecified systolic (congestive) heart failure
CPT/HCPCS: C1764